=== PATIENT | female | born 1995 | race African-American/Black ===

== ENCOUNTER 2017-12-20 13:47 | Emergency (ER) | payer MEDICAID ==
[2017-12-20 16:05] VITALS: BP 146/86
--- NOTE | 2017-12-20 19:21 | ED ---
Zelalem Wynn Julia, scribed for Naman Powell MD on 12/20/17 at 1510 . Lower Extremity - HPI Summary HPI Summary: This patient is a 22 year old F presenting to [facility] with a chief complaint of right knee pain for the past weeks Patient reports clicking/cracking of her knee with flexion and extension. Symptoms aggravated by jumping. Patient states she is very active. - History of Current Complaint Chief Complaint: EDExtremityLower Stated Complaint: RT KNEE PAIN Time Seen by Provider: 12/20/17 14:34 Hx Obtained From: Patient Hx Last Menstrual Period: March 15 Mechanism Of Injury: Other Onset of Pain: Days Onset/Duration: Still Present Pain Intensity: 0 Timing: Constant Location: Is Discrete @ - right knee Associated Signs And Symptoms: Positive: Knee Pain, Other - clicking Aggravating Factor(s): Standing, Movement Able to Bear Weight: Yes - Allergies/Home Medications Allergies/Adverse Reactions: Allergies Allergy/AdvReac Type Severity Reaction Status Date / Time No Known Allergies Allergy Verified 12/20/17 14:43 Home Medications: Home Medications Quetiapine Fumarate [Quetiapine Fumarate ER] 50 mg PO DAILY 12/20/17 [History Confirmed 12/20/17] PMH/Surg Hx/FS Hx/Imm Hx Cardiovascular History: Denies: Hx Congestive Heart Failure Respiratory History: Reports: Hx Asthma - Surgical History Surgery Procedure, Year, and Place: HERNIA REPAIR - Immunization History Date of Tetanus Vaccine: Unk Date of Influenza Vaccine: None Infectious Disease History: No Infectious Disease History: Denies: Traveled Outside the [place] in Last 30 Days - Family History Known Family History: Negative: Cardiac Disease - Social History Alcohol Use: Occasionally Substance Use Type: Reports: None Smoking Status (MU): Light Every Day Tobacco Smoker - casually Have You Smoked in the Last Year: No Review of Systems Negative: Fever Positive: Myalgia - knee pain. Negative: Edema All Other Systems Reviewed And Are Negative: Yes Physical Exam - Summary Physical Exam Summary: Appearance: Well appearing, no pain distress Skin: warm, dry, reflects adequate perfusion Head/face: normal Eyes: EOMI, RONNELL ENT: normal Neck: supple, non-tender Respiratory: CTA, breath sounds present Cardiovascular: RRR, pulses symmetrical Abdomen: non-tender, soft Bowel Sounds: present Musculoskeletal: strength/ROM intact, minimal discomfort to the lateral aspects of the patella Neuro: normal, sensory motor intact, A&Ox3 Triage Information Reviewed: Yes Vital Signs On Initial Exam: Initial Vitals Temp Pulse Resp BP Pulse Ox 97.5 F 68 16 139/69 97 12/20/17 13:55 12/20/17 13:55 12/20/17 13:55 12/20/17 13:55 12/20/17 13:55 Vital Signs Reviewed: Yes Diagnostics - Vital Signs Vital Signs Temp Pulse Resp BP Pulse Ox 12/20/17 13:55 97.5 F 68 16 139/69 97 - Laboratory Lab Statement: Any lab studies that have been ordered have been reviewed, and results considered in the medical decision making process. - Additional Comments Diagnostic Additional Comments: A XR of the right knee was cancelled. Lower Extremity Course/Dx - Course Course Of Treatment: Pt with activity based discomfort in area of patella. No effusion or instability of joint. Nl gait and little pain now. Will recommend PFS brace. Xray not done as radiology requiring preg test (no urine test done here). Pt agrees at deferred xray. - Diagnoses Differential Diagnosis/HQI/PQRI: Positive: Contusion, Sprain, Strain, Tendonitis Provider Diagnoses: Patellofemoral syndrome of right knee Discharge - Sign-Out/Discharge Documenting (check all that apply): Discharge - Discharge Plan Condition: Good Disposition: HOME Patient Education Materials: Patellofemoral Pain Syndrome (ED) Forms: *Work Release Referrals: [facility] [place] [facility] REFERR[facility] [Outside] Additional Instructions: Rest, ice, elevation at rest. Obtain and use the "Kneed-It" brace I described. Ibuprofen as needed. The documentation as recorded by the Zelalem diaz Julia accurately reflects the service I personally performed and the decisions made by me, Naman Powell MD.
== END 2017-12-20 16:04 | disposition home or self-care (01) ==
LOC: ED 13:47
DX: M22.2X1 Patellofemoral disorders, right knee (principal); M25.561 Pain in right knee
CPT/HCPCS: 99282

== ENCOUNTER 2018-02-12 10:30 | Emergency (ER) | payer MEDICAID ==
[2018-02-12 14:35] VITALS: BP 123/88
--- NOTE | 2018-02-12 16:55 | ED ---
Skin Complaint - HPI Summary HPI Summary: Patient is a 22-year-old female who presents emergency department for evaluation of the lesion to her mouth that she has had for several months. Patient states she was tested for STDs recently at [facility] and did not hear back results. She was concerned because she has noticed a lesion in her mouth that is not changed for several months. It is not painful. Symptoms are mild in severity. She denies any associated symptoms. No current modifying factors. Patient has a history of schizophrenia and states she does not take her medication because she does not like the way it makes her feel. She otherwise denies past medical history. - History of Current Complaint Chief Complaint: EDGeneral Time Seen by Provider: 02/12/18 13:33 Stated Complaint: GEN. ILLNESS Hx Obtained From: Patient Hx Last Menstrual Period: March 15 Pain Intensity: 1 Pain Scale Used: 0-10 Numeric - Allergy/Home Medications Allergies/Adverse Reactions: Allergies Allergy/AdvReac Type Severity Reaction Status Date / Time No Known Allergies Allergy Verified 02/12/18 10:43 PMH/Surg Hx/FS Hx/Imm Hx Previously Healthy: Yes Cardiovascular History: Denies: Hx Congestive Heart Failure Respiratory History: Reports: Hx Asthma - Surgical History Surgery Procedure, Year, and Place: HERNIA REPAIR - Immunization History Date of Tetanus Vaccine: Unk Date of Influenza Vaccine: None Infectious Disease History: No Infectious Disease History: Denies: Traveled Outside the [place] in Last 30 Days - Family History Known Family History: Positive: None Negative: Cardiac Disease Family History: no known cardiovascular issues in lineage - Social History Alcohol Use: Occasionally Substance Use Type: Reports: None Smoking Status (MU): Light Every Day Tobacco Smoker Have You Smoked in the Last Year: No Review of Systems Positive: Other - Mouth lesion All Other Systems Reviewed And Are Negative: Yes Physical Exam Triage Information Reviewed: Yes Vital Signs On Initial Exam: Initial Vitals Temp Pulse Resp BP Pulse Ox 98.2 F 75 17 116/73 99 02/12/18 10:41 02/12/18 10:41 02/12/18 10:41 02/12/18 10:41 02/12/18 10:41 Vital Signs Reviewed: Yes Appearance: Positive: Well-Appearing - Pt. sitting on bed in NAD. Skin: Positive: Warm, Dry Head/Face: Positive: Normal Head/Face Inspection Eyes: Positive: Normal ENT: Positive: Other - I do not appreciate any lesions to the inner mucosal on lip where patient is concerned. There is no ulceration, edema, erythema, or wounds. Neck: Positive: Supple Neurological: Positive: Normal, CN Intact II-III Psychiatric: Positive: Affect/Mood Appropriate Diagnostics - Vital Signs Vital Signs Temp Pulse Resp BP Pulse Ox 02/12/18 14:34 0 F 67 16 123/88 97 02/12/18 10:41 98.2 F 75 17 116/73 99 - Laboratory Lab Statement: Any lab studies that have been ordered have been reviewed, and results considered in the medical decision making process. Course/Dx - Course Course Of Treatment: Patient presenting to the ER for elevation of an oral lesion. She is concerned she may have an STD. On her exam I do not appreciate any abnormalities or lesions in her mouth. Patient is relieved. Advised close follow-up with PCP. Discharged home stable. - Differential Diagnoses - Skin Complaint Differential Diagnoses: Abscess, Cellulitis, Contact Dermatitis, Eczema - Diagnoses Provider Diagnoses: Well adult exam Discharge - Sign-Out/Discharge Documenting (check all that apply): Discharge/Admit/Transfer - Discharge Plan Condition: Good Disposition: HOME Patient Education Materials: Canker Sores (ED) Referrals: [facility] [Outside] No Primary Care Phys,NOPCP [Primary Care Provider] - Additional Instructions: Call the physician referral line to establish a PCP Return to ER if symptoms change or worsen - Billing Disposition and Condition Condition: GOOD Disposition: Home
== END 2018-02-12 14:34 | disposition home or self-care (01) ==
LOC: ED 10:30
DX: Z71.1 Person with feared health complaint in whom no diagnosis is made (principal); F17.200 Nicotine dependence, unspecified, uncomplicated
CPT/HCPCS: 99282

== ENCOUNTER 2018-03-12 18:47 | Inpatient (IN) | payer MEDICAID ==
[2018-03-12] MEDS ORDERED: LORazepam INJ* 2 MG/ML 1 ML VIAL ONE (18:50)
[2018-03-12] MEDS ORDERED: diPHENhydraMINE IV* 50 MG/ML 1 ml VIAL (BENADRYL) ONE (18:50)
[2018-03-12] MEDS ORDERED: Haloperidol INJ IV/IM* 5 MG/ML AMP ONE (18:50)
[2018-03-12] MEDS ORDERED: Ibuprofen TAB* 800 MG PO ONE (19:28)
[2018-03-12 22:19] LABS: ABS Basophils 0 10^3/ul (0-0.2); ABS Eosinophils 0.1 10^3/ul (0-0.6); ABS Lymphocytes 2.7 10^3/ul (1.0-4.8); ABS Monocytes 0.5 10^3/ul (0-0.8); ABS Neutrophils 2.7 10^3/ul (1.5-7.7); ABS Nucleated RBC 0 10^3/ul; Hematocrit 39 % (35-47); Hemoglobin 13.1 g/dl (12.0-16.0); Lymphocyte % 44.3 % (25-47); Mean Corpuscular HGB Conc 34 g/dl (31-36); Mean Corpuscular Hemoglobin 30 pg (27-31); Mean Corpuscular Volume 90 fL (80-97); Mean Platelet Volume 8.4 um3 (7.4-10.4); Nucleated Red Blood Cells % 0.3; Platelet Count 216 10^3/ul (150-450); Red Blood Count 4.31 10^6/ul (4.00-5.40); Red Cell Distribution Width 14 % (10.5-15)
--- NOTE | 2018-03-13 07:34 | RAD ---
HISTORY: hallucination COMPARISONS: November 27, 2013 TECHNIQUE: Multiple contiguous axial CT scans were obtained of the head without intravenous contrast. FINDINGS: HEMORRHAGE/INFARCT: There is no hemorrhage or acute infarct. MASSES/SHIFT: There is no mass or shift. EXTRA-AXIAL SPACES: There are no extra-axial fluid collections. SULCI AND VENTRICLES: The sulci and ventricles are normal in size and position for the patient's stated age. CEREBRUM: There are no focal parenchymal abnormalities. BRAINSTEM: There are no focal parenchymal abnormalities. CEREBELLUM: There are no focal parenchymal abnormalities. VESSELS: The vessels are grossly normal. PARANASAL SINUSES: The paranasal sinuses are clear. ORBITS: The orbits are unremarkable. BONES AND SOFT TISSUE: No bone or soft tissue abnormalities are noted. OTHER: None IMPRESSION: NO ACUTE INTRACRANIAL PATHOLOGY.
--- NOTE | 2018-03-13 08:02 | PN ---
ED Flex Patient Progress Note Date of Service: 03/12/18 Subjective: This is a 23 year-old F who is pending admission to [facility] / transfer to another psychiatric facility / discharge to home / or being observed secondary to SI and agitation. Pt. examined in ER room 17 around 0730. She is sleeping comfortably. Objective: Vitals: Most recent vital signs documented below. Laboratory: Current laboratory results documented below. Assessment: Pending MHE. Plan: Pending psychiatric or medical consultation to observe / transfer / admit / discharge will follow up daily . Vital Signs Temp Pulse Resp BP Pulse Ox 98.4 F 66 12 117/72 100 03/12/18 18:49 03/13/18 06:00 03/12/18 18:49 03/12/18 22:52 03/13/18 06:00 Lab Results - Entire Visit 03/12/18 03/12/18 22:12 22:12 WBC 6.0 RBC 4.31 Hgb 13.1 Hct 39 MCV 90 MCH 30 MCHC 34 RDW 14 Plt Count 216 MPV 8.4 Neut % (Auto) 44.4 Lymph % (Auto) 44.3 [place] % (Auto) 8.9 H Eos % (Auto) 2.0 Baso % (Auto) 0.4 Absolute Neuts (auto) 2.7 Absolute Lymphs (auto) 2.7 Absolute Monos (auto) 0.5 Absolute Eos (auto) 0.1 Absolute Basos (auto) 0 Absolute Nucleated RBC 0 Nucleated RBC % 0.3 Sodium 141 Potassium 3.4 L Chloride 106 Carbon Dioxide 24 Anion Gap 11 BUN 17 Creatinine 1.00 H Est GFR ( Amer) 84.7 Est GFR (Non-Af Amer) 70.0 BUN/Creatinine Ratio 17.0 Glucose 105 H Calcium 9.2 Total Bilirubin 0.60 AST 32 ALT 18 Alkaline Phosphatase 72 Total Protein 6.5 Albumin 4.1 Globulin 2.4 Albumin/Globulin Ratio 1.7 TSH 1.39 Beta HCG, Quant < 0.60 Salicylates < 2.50 Acetaminophen < 15 Serum Alcohol < 10
[2018-03-13] MEDS ORDERED: Al Hydrox/Mg Hydrox/Simet LIQ* 30 ML UDC PO PRN (13:06)
[2018-03-13] MEDS ORDERED: Acetaminophen TAB* 325 MG PO PRN (13:06)
[2018-03-13] MEDS ORDERED: LORazepam TAB(*) 1 MG PO PRN (13:08)
[2018-03-13] MEDS ORDERED: Haloperidol TAB* 5 MG PO PRN (13:08)
--- NOTE | 2018-03-13 14:00 | ED ---
Shlomo Wynn Angela, scribed for Gaston Hernandez MD on 03/13/18 at 1224 . Progress - Progress Note Progress Note: This pt was signed out by Dr. Grady, pending disposition, awaiting MHE. Pt had a mental health evaluation and her case was reviewed by Dr. Amaya, psychiatrist. Dr. Amaya recommends admission to [facility] [place] psychiatry. Pt will be admitted with a diagnosis of unspecified psychotic disorder. Course/Dx - Diagnoses Provider Diagnoses: Psychotic disorder Discharge - Sign-Out/Discharge Documenting (check all that apply): Discharge/Admit/Transfer - Admit, Receiving Sign-Out Receiving patient FROM: Annmarie Grady - Discharge Plan Condition: Stable Disposition: PSYCHIATRIC FACILITY-[facility] [place] - Billing Disposition and Condition Condition: STABLE Disposition: Psychiatric Facility [facility] [place] The documentation as recorded by the Shlomo diaz Angela accurately reflects the service I personally performed and the decisions made by David ellis Richard L, MD.
--- NOTE | 2018-03-14 03:44 | ED ---
Drake Wynn Tariq, scribed for Annmarie Grady MD on 03/12/18 at 1931 . Upper Extremity Pain - HPI Summary HPI Summary: A 23 y/o female presents to ED c/o right shoulder pain and diffuse body pain. Additionally, as per triage, she states SI without a plan. According to the patient, her shoulder is very painful, 7/10 in severity, because she has dislocated it several times (3 or more times). She denies any injury, but her shoulder keeps dislocating, "it keeps dislocating itself, it hurts". She noted that she currently does not have SI, but answered the nurse's question truthfully that she has had SI in the past. It was noted that the patient has not seen any physician for SI in the past. Patient states she has a psychiatric disease and did take Seraquil for it, however, is currently not on it because it does not work for her, "it does not do what it is suppose to do". She is currently on no other medications. Patient stated that she does not live with family as she lives on the streets. - History of Current Complaint Chief Complaint: EDMentalHealth Stated Complaint: PAIN IN RT SHOULDER Time Seen by Provider: 03/12/18 19:10 Hx Obtained From: Patient Hx Last Menstrual Period: March 15 Mechanism Of Injury: Unknown Onset/Duration: Still Present - Right shoulder pain Timing: Constant Severity Initially: Severe - 7/10 Severity Currently: Severe - 7/10 Pain Location: Shoulder - Right Aggravating Factor(s): Nothing Alleviating Factor(s): Nothing - Allergies/Home Medications Allergies/Adverse Reactions: Allergies Allergy/AdvReac Type Severity Reaction Status Date / Time No Known Allergies Allergy Verified 03/12/18 18:49 Home Medications: Home Medications NK [No Home Medications Reported] 03/12/18 [History Confirmed 03/12/18] PMH/Surg Hx/FS Hx/Imm Hx Cardiovascular History: Denies: Hx Congestive Heart Failure Respiratory History: Reports: Hx Asthma - Surgical History Surgery Procedure, Year, and Place: HERNIA REPAIR - Immunization History Date of Tetanus Vaccine: Unk Date of Influenza Vaccine: None Infectious Disease History: No Infectious Disease History: Denies: Traveled Outside the [place] in Last 30 Days - Family History Known Family History: Negative: Cardiac Disease Family History: no known cardiovascular issues in lineage - Social History Alcohol Use: Occasionally Substance Use Type: Reports: None Smoking Status (MU): Light Every Day Tobacco Smoker Have You Smoked in the Last Year: No Review of Systems Negative: Fever Positive: Other - POSITIVE: Right shoulder pain All Other Systems Reviewed And Are Negative: Yes Physical Exam - Summary Physical Exam Summary: VITAL SIGNS: Reviewed. GENERAL: Patient is a well-developed and nourished FEMALE who is lying comfortable in the stretcher. Patient is not in any acute respiratory distress. Patient is homeless. Patient is wearing sunglasses and seems like she is having a delayed effect in answering questions. HEAD AND FACE: No signs of trauma. No ecchymosis, hematomas or skull depressions. No sinus tenderness. EYES: PERRLA, EOMI x 2, No injected conjunctiva, no nystagmus. EARS: Hearing grossly intact. Ear canals and tympanic membranes are within normal limits. MOUTH: Oropharynx within normal limits. NECK: Supple, trachea is midline, no adenopathy, no JVD, no carotid bruit, no c- spine tenderness, neck with full ROM. CHEST: Symmetric, no tenderness at palpation LUNGS: Clear to auscultation bilaterally. No wheezing or crackles. CVS: Regular rate and rhythm, S1 and S2 present, no murmurs or gallops appreciated. ABDOMEN: Soft, non-tender. No signs of distention. No rebound no guarding, and no masses palpated. Bowel sounds are normal. EXTREMITIES: FROM in all major joints, no edema, no cyanosis or clubbing. Shoulder exam is normal. NEURO: Alert and oriented x 3. No acute neurological deficits. Speech is normal and follows commands. SKIN: Dry and warm GCS: 15 Triage Information Reviewed: Yes Vital Signs On Initial Exam: Initial Vitals Temp Pulse Resp BP Pulse Ox 98.4 F 69 12 111/76 100 03/12/18 18:49 03/12/18 18:49 03/12/18 18:49 03/12/18 18:49 03/12/18 18:49 Vital Signs Reviewed: Yes Diagnostics - Vital Signs Vital Signs Temp Pulse Resp BP Pulse Ox 03/12/18 18:49 98.4 F 69 12 111/76 100 - Laboratory Lab Results: Lab Results 03/12/18 03/12/18 Range/Units 22:12 22:12 WBC 6.0 (3.5-10.8) 10^3/ul RBC 4.31 (4.00-5.40) 10^6/ul Hgb 13.1 (12.0-16.0) g/dl Hct 39 (35-47) % MCV 90 (80-97) fL MCH 30 (27-31) pg MCHC 34 (31-36) g/dl RDW 14 (10.5-15) % Plt Count 216 (150-450) 10^3/ul MPV 8.4 (7.4-10.4) um3 Neut % (Auto) 44.4 (38-83) % Lymph % (Auto) 44.3 (25-47) % Pepin % (Auto) 8.9 H (0-7) % Eos % (Auto) 2.0 (0-6) % Baso % (Auto) 0.4 (0-2) % Absolute Neuts (auto) 2.7 (1.5-7.7) 10^3/ul Absolute Lymphs (auto) 2.7 (1.0-4.8) 10^3/ul Absolute Monos (auto) 0.5 (0-0.8) 10^3/ul Absolute Eos (auto) 0.1 (0-0.6) 10^3/ul Absolute Basos (auto) 0 (0-0.2) 10^3/ul Absolute Nucleated RBC 0 10^3/ul Nucleated RBC % 0.3 Sodium 141 (135-145) mmol/L Potassium 3.4 L (3.5-5.0) mmol/L Chloride 106 (101-111) mmol/L Carbon Dioxide 24 (22-32) mmol/L Anion Gap 11 (2-11) mmol/L BUN 17 (6-24) mg/dL Creatinine 1.00 H (0.51-0.95) mg/dL Est GFR ( Amer) 84.7 (>60) Est GFR (Non-Af Amer) 70.0 (>60) BUN/Creatinine Ratio 17.0 (8-20) Glucose 105 H (70-100) mg/dL Calcium 9.2 (8.6-10.3) mg/dL Total Bilirubin 0.60 (0.2-1.0) mg/dL AST 32 (13-39) U/L ALT 18 (7-52) U/L Alkaline Phosphatase 72 (34-104) U/L Total Protein 6.5 (6.4-8.9) g/dL Albumin 4.1 (3.2-5.2) g/dL Globulin 2.4 (2-4) g/dL Albumin/Globulin Ratio 1.7 (1-3) Triglycerides 48 mg/dL Cholesterol 149 mg/dL LDL Cholesterol 96 mg/dL HDL Cholesterol 43.9 mg/dL TSH 1.39 (0.34-5.60) mcIU/mL Beta HCG, Quant < 0.60 mIU/mL Salicylates < 2.50 (<30) mg/dL Acetaminophen < 15 mcg/mL Serum Alcohol < 10 (<10) mg/dL Result Diagrams: 03/12/18 22:12 03/12/18 22:12 Lab Statement: Any lab studies that have been ordered have been reviewed, and results considered in the medical decision making process. - CT BRAIN CT CT Interpretation Completed By: Radiologist - NO DEFINITIVE EVIDENCE OF ACUTE INTRACRANIAL HEMORRHAGE, INTRACRANIAL MASS EFFECT, HYDROCEPHALUS, OR DEPRESSED CALVARIAL FRACTURE IS APPRECIATED. IF SYMPTOMS OR CONCERN PERSISTS, CORRELATION WITH FOLLOW UP CT OR MRI IS ADVISED, AT YOUR CLINICAL DISCRETION. Re-Evaluation - Re-Evaluation First Eval Re-Evaluation Time: 22:49 Comment: As per Dr. Grady, patient was evaluated by mental health. Patient was found to be uncooperative, angry and agitated. Patient refused blood work and is uncooperative at this time. Patient has been seen and has talked with Dr. Grady, mental health and the nursing staff for blood work and work up. Patient persisted with being uncooperative. Patient had to be sedated because she was fighting with staff. Course/Dx - Diagnoses Provider Diagnoses: Psychotic disorder Discharge - Sign-Out/Discharge Documenting (check all that apply): Discharge/Admit/Transfer Signing out patient TO: Gaston Hernandez Receiving patient FROM: Annmarie Grady - Discharge Plan Condition: Stable Disposition: [place] [place] [place] Billing Disposition and Condition Condition: STABLE Disposition: Psychiatric Facility [facility] [place] The documentation as recorded by the Drake diaz Tariq accurately reflects the service I personally performed and the decisions made by , Annmarie Grady MD.
[2018-03-14] MEDS: Paliperidone ER TAB* 6 MG TAB.ER PO SCH (12:53)
[2018-03-14] MEDS ORDERED: Mouth Piece, Nicotine* 1 EACH CARTRIDGE INH PRN (13:11)
[2018-03-14] MEDS ORDERED: Nicotine GUM* 2 MG PO PRN (13:11)
[2018-03-14] MEDS ORDERED: Nicotine Inhaler* 10 MG AMP INH PRN (13:11)
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
[2018-03-14] MEDS: Nicotine Patch Removal NOTE FOLLOW UP SCH (20:13)
[2018-03-15] MEDS: Paliperidone ER TAB* 6 MG TAB.ER PO SCH (08:38)
[2018-03-15] MEDS: Nicotine PATCH 14 MG/24 HR* PATCH TRANSDERM SCH (08:38)
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
[2018-03-15] MEDS: Nicotine Patch Removal NOTE FOLLOW UP SCH (19:12)
[2018-03-16] MEDS: Paliperidone ER TAB* 6 MG TAB.ER PO SCH (08:47)
[2018-03-16] MEDS: Nicotine PATCH 14 MG/24 HR* PATCH TRANSDERM SCH (08:47)
--- NOTE | 2018-03-16 13:19 | PN ---
[facility]: Group Therapy Note - Service Type Service Type: [id number] Group Psychotherapy - Cognitive Behavioral Group Therapy ( CBT):Patient was attentive and participatory in CBT programming this morning, and remained in good behavioral control. Patient expressed positive insights regarding relevant treatment interventions and goals. Jerri exhibted some odd behavior, such as standing on a chair, but accepted redirection well.
--- NOTE | 2018-03-16 14:37 | PN ---
Subjective - Subjective Date of Service: 03/16/18 Service Type: 76906 Hosp care 35 min high complexity Subjective: Patient is primarily seclusive to her room. She is sometimes present in milieu and groups with minimal interactions and impulsive, bizarre behavior. For example, she stood on a chair during CBT group. She is noted to laugh and smile to herself and has positive latencies during interactions with others. Patient met with providers from [facility] to discuss program and potential admission. They exchanged information and patient will be referred to [facility] from hospital for direct transition of care. From there, [facility] will coordinate with [facility]. Patient agreeable to plan. Objective - Appearance Appearance: Well Developed/Nourished Dysmorphic Features: No Hygiene: Normal Grooming: Fairly Well Kept - Behavior Psychomotor Activities: Normal Exhibits Abnormal Movement: No - Attitude and Relatedness Attitude and Relatedness: Psychotically Related Eye Contact: Fair - Speech Quality: Unpressured Latencies: Short Quantity: Terse - Mood Patient's Decription of Mood: "tired" - Affect Observed Affect: Expansive Affect Consistent with: Euphoria - Thought Process Patient's Thought Process: Tangential, Filght of Ideas Thought Content: Yes Paranoid Ideation, No Passive Wish, No Suicidal Planning, No Homicidal Ideation - Sensorium Experiencing Hallucinations: Yes Type of Hallucinations: Visual: Yes, Auditory: Yes, Command: No - Level of Consciousness Level of Consciousness: Alert Orientation: Yes Intact, Yes Orientated to Time, Yes Orientated to Place, Yes Orientated to Person - Impulse Control Impulse Control: Tenuous - Insight and Judgement Insight and Judgement: Poor - Group Participation Particating in Group Activities: No - Medication Management Medication Management Adherence: Partial Assessment - Assessment Merits Inpatient Hospitalization: For Immediate Safety, For Stabilization, For Discharge Planning Inpatient DSM-V Dx: F25.0 Clinical Impression: 23yo black female with hx of schizoaffective d/o who presented to ED for shoulder pain. She was noted to be psychotic and in need for psychiatric evaluation. She continues to present as paranoid and guarded. Patient has poor insight and is attending to internal stimuli. Patient rescinded 72-hour notice in order to participate in staff pass. She is refusing medications but agrees to meet with [facility] for aftercare. Plan - Plan Treatment Plan: Name: MAYRA STILL Birthdate: 1995 [id number] continue acute intensive psychiatric treatment. patient rescinded 72-hour notice. patient is refusing medication patient to f/u with [facility] Continued Medication Management: Consider Medication Medications: Current Medications Acetaminophen (Tylenol Tab*) 650 mg PO Q4H PRN PRN Reason: for pain; or Temp >101 F Al Hydrox/Mg Hydrox/Simethicone (Maalox Plus*) 30 ml PO Q4H PRN PRN Reason: INDIGESTION Device (Nicotine Mouth Piece*) 1 each INH .USE WITH NICOTROL PRN PRN Reason: CRAVING Haloperidol (Haldol Tab*) 5 mg PO Q6H PRN PRN Reason: AGITATION Lorazepam (Ativan Tab(*)) 1 mg PO Q6H PRN PRN Reason: ANXIETY Nicotine (Nicotine Inhaler*) 10 mg INH Q2H PRN PRN Reason: CRAVING Nicotine (Nicotine Patch 14 Mg/24 Hr*) 1 patch TRANSDERM DAILY [facility] Last Admin: 03/16/18 08:47 Dose: Not Given Nicotine Polacrilex (Nicotine Gum*) 2 mg PO Q2H PRN PRN Reason: CRAVING Paliperidone (Invega Er Tab*) 6 mg PO DAILY [facility] Last Admin: 03/16/18 08:47 Dose: Not Given Pharmacy Profile Note (Nicotine Patch Removal Note*) 1 note FOLLOW UP [facility]99 [facility] Last Admin: 03/15/18 19:12 Dose: Not Given - Discharge Plan Discharge Plan: Outpatient Follow Up Outpatient Program: [facility]
[2018-03-16] MEDS: Nicotine Patch Removal NOTE FOLLOW UP SCH (21:13)
[2018-03-17 07:57] VITALS: BP 99/75
[2018-03-17] MEDS: Nicotine PATCH 14 MG/24 HR* PATCH TRANSDERM SCH (09:22)
[2018-03-17] MEDS: Paliperidone ER TAB* 6 MG TAB.ER PO SCH (09:22)
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
== END 2018-03-17 11:10 | disposition home or self-care (01) | DRG 750 ==
LOC: ED 18:47 → BSU 03-13 13:10
PROVIDERS: ADMIT Psychiatry & Neurology Psychiatry; ATTEND Psychiatry & Neurology Psychiatry
PROC: GZHZZZZ Group Psychotherapy (ICD-10-PCS; principal; 2018-03-16)
DX: F25.0 Schizoaffective disorder, bipolar type (principal); R45.851 Suicidal ideations; Z72.89 Other problems related to lifestyle; R45.1 Restlessness and agitation; J45.909 Unspecified asthma, uncomplicated; F17.210 Nicotine dependence, cigarettes, uncomplicated; M25.511 Pain in right shoulder; Z62.810 Personal history of physical and sexual abuse in childhood
CPT/HCPCS: 36415; 70450; 80053; 80061; 80320; 80329; 83036; 84443; 84702; 85025; 85660; 86618; 90853; 99222; 99233; 99238; 99284; A9270-GY; G0480; J1200; J1630; J2060

== ENCOUNTER 2018-03-18 12:29 | Inpatient (IN) | payer MEDICAID ==
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
[2018-03-18 13:40] LABS: ABS Basophils 0 10^3/ul (0-0.2); ABS Eosinophils 0.1 10^3/ul (0-0.6); ABS Lymphocytes 2.3 10^3/ul (1.0-4.8); ABS Monocytes 0.7 10^3/ul (0-0.8); ABS Nucleated RBC 0 10^3/ul; Eosinophil % 1.1 % (0-6); Hematocrit 37 % (35-47); Hemoglobin 12.4 g/dl (12.0-16.0); Lymphocyte % 32.8 % (25-47); Mean Corpuscular HGB Conc 34 g/dl (31-36); Mean Corpuscular Hemoglobin 30 pg (27-31); Mean Corpuscular Volume 90 fL (80-97); Mean Platelet Volume 8.5 um3 (7.4-10.4); Nucleated Red Blood Cells % 0.1; Platelet Count 209 10^3/ul (150-450); Red Blood Count 4.08 10^6/ul (4.00-5.40); Red Cell Distribution Width 14 % (10.5-15); White Blood Count 7.2 10^3/ul (3.5-10.8)
[2018-03-18 13:56] LABS: EGFR Non-African American 94.6 (>60)
[2018-03-18 14:54] LABS: Urine Appearance Clear; Urine Blood Negative (Negative); Urine Color Yellow; Urine Ketones Negative (Negative); Urine Protein Negative (Negative); Urine Specific Gravity 1.028 (1.010-1.030); Urine Urobilinogen Negative (Negative)
[2018-03-18] MEDS ORDERED: Acetaminophen TAB* 325 MG PO PRN (18:25)
[2018-03-18] MEDS ORDERED: Al Hydrox/Mg Hydrox/Simet LIQ* 30 ML UDC PO PRN (18:25)
[2018-03-19] MEDS: Vitamin THERAPEUTIC TAB PO SCH (13:18)
--- NOTE | 2018-03-19 19:49 | HP ---
HISTORY AND PHYSICAL: DATE OF ADMISSION: 03/18/18 This is an addendum to the recent history and physical and discharge summary dictated on this patient. IDENTIFYING DATA: The patient is a 23-year-old, single, homeless, unemployed, and mentally disabled female who referred herself back to this hospital, the day after a previous discharge, on Tuesday03/18/18. She was admitted on emergency status for her safety, given that she is too disorganized in her thinking and behavior to function safely in the community. CHIEF COMPLAINT: "I went to [facility], they said they could not help me, that I would just be out tonight, you guys said I could come back, right?" HISTORY OF PRESENT ILLNESS: The patient was previously admitted to the adult psychiatric unit from 03/13/18 to 03/17/18 for treatment of psychosis. She briefly agreed to trial of a low dose of quetiapine. She refused to continue taking the medication after the first dose, complaining of sedation. She submitted a 72-hour notice that she subsequently rescinded in order to be able to go on staff passes. The patient worked cooperatively with her treatment team , appeared improved enough to be discharged with outpatient psychiatric followup care. The patient left on yesterday 03/17/18, on no medication, as she had refused, but with followup appointment at [facility] on 03/22/18 at 10:30 p.m. and with instructions to continue working with [facility] for supportive services. She was also instructed to go directly to [facility] after discharge to meet with senior technologist Ruth Ann Veronica to explore housing options. Today, she relates that she did go to [facility] and she was told by Ms. Veronica that they ([facility]) could not help her and that she just had to be out in the streets. She became angry and frustrated and left. She walked aimlessly around town. In the evening, she had "a few shots of alcohol, but she did not feel intoxicated." She slept outside, (refused to elaborate as to where outside exactly). She decided to return to this hospital on Tuesday morning "to get more help." She is still unwilling to consider medication, but she reports being open to participating in programming to learn appropriate coping skills. PAST MEDICAL HISTORY: Remarkable for bronchial asthma and for irregular menstrual periods. The patient is requesting test as she is late for her period. PAST SURGICAL HISTORY: Remarkable for hernia repair. PHYSICAL EXAMINATION ADMISSION VITAL SIGNS: Blood pressure is 117/61, pulse is 80, respirations 16, temperature 98. Physical examination is waived as the patient was discharged and readmitted in less than 24 hours. MENTAL STATUS EXAMINATION: Finds an averagely built, 23-year-old, female with her hair locks wrapped like a turban. She looks her stated age. She is adequately groomed, dressed in hospital scrubs. She presents as psychotically-related. She exhibits normal psychomotor activity. No abnormal movements are observed. Short latencies in speech that is otherwise of normal rate, rhythm, and volume. Her affect is invariable. Mood is euthymic. Thought process is disorganized. She clearly appears to respond to internal stimuli. She admits to hearing several voices, comments that one of the voices is her boyfriend's. She expresses grandiose, paranoid and persecutory delusions, "a lot of people do not want me alive because of who I am and what I am about to find out." Her insight and judgment are grossly impaired. Impulse control is tenuous in this setting. She is alert. She is oriented to time, place, person. Attention, memory, and concentration are all poor. Fund of knowledge is adequate. Intelligence is estimated to be in normal average range. LABORATORY DATA: On admission, her CBC was within normal limits. Complete metabolic panel shows BUN/creatinine ratio of 24.7. Nonfasting glucose 103. Total protein 5.9. The patient's beta hCG was less than 0.6. Urinalysis within normal limits. Urine toxicology screen was negative for salicylates, acetaminophen, or serum alcohol. SUMMARY: Readmission at close interval for this 23-year-old female with diagnosis of schizoaffective disorder, who returned to the emergency room less than 24 hours after previous discharge with complaints of homelessness, and feeling unsafe. On mental health interview, she remained bizarre and exhibited signs and symptoms of psychosis. Medical history is noncontributory. The patient admitted that she had a few shots of alcohol between the time she was discharged and the time she returned here. Her blood alcohol level was less than 10. The patient's family history of psychiatric illnesses or of completed suicide is unknown at this time. The patient described stressors of strained relationship with relatives; housing, occupational and social support deficits. DIAGNOSTIC IMPRESSIONS: 1. Schizoaffective disorder, unspecified type by history. 2. Alcohol abuse, moderate. TREATMENT PLAN: Admit to mental health unit, 15-minute checks, full code status. Legal status is emergency. Initiate comprehensive milieu, individual, and group psychotherapeutic support. Medication management will involve psychoeducation of the patient about the need to consider a trial of antipsychotic medication to effectively control her symptoms. Discharge planning will involve coordination of her aftercare with [facility] and with [facility]. [id number]/CPS #: [id number] ANSHUL
[2018-03-20] MEDS: Vitamin THERAPEUTIC TAB PO SCH (09:01)
--- NOTE | 2018-03-20 15:27 | PN ---
Subjective - Subjective Date of Service: 03/20/18 Service Type: 90994 Hosp care 15 min low complexity Subjective: Patient has been seclusive to room except for meals. She vigorously cleans her room and bathroom during free times. During various conversations with myself and other staff, she is circumstantial and irritable in regards to being rejected by DSS. Auto Body Mechanic attempts to discuss patient's symptomology and she diverts conversation back to DSS topic. She often laughs to herself and identifies that she is hearing auditory hallucinations. Objective - Appearance Appearance: Well Developed/Nourished Dysmorphic Features: No Hygiene: Normal Grooming: Disheveled - Behavior Psychomotor Activities: Normal Exhibits Abnormal Movement: No - Attitude and Relatedness Attitude and Relatedness: Irritable Eye Contact: Fair - Speech Quality: Pressured Latencies: Short Quantity: Terse - Mood Patient's Decription of Mood: "Upset" - Affect Observed Affect: Expansive Affect Consistent with: Euphoria - Thought Process Patient's Thought Process: Circumstantial Thought Content: Yes Paranoid Ideation, No Passive Wish, No Suicidal Planning, No Homicidal Ideation - Sensorium Type of Hallucinations: Visual: No, Auditory: Yes, Command: No - Level of Consciousness Level of Consciousness: Alert Orientation: Yes Intact, Yes Orientated to Time, Yes Orientated to Place, Yes Orientated to Person - Impulse Control Impulse Control: Tenuous - Insight and Judgement Insight and Judgement: Impaired - Group Participation Particating in Group Activities: No - Medication Management Medication Management Adherence: No Assessment - Assessment Merits Inpatient Hospitalization: For Immediate Safety, For Stabilization Inpatient DSM-V Dx: F25.0 Clinical Impression: 23yo black female with history of schizoaffective d/o, undomiciled who presented to the ED shortly after being discharged less than 24hours prior. She presents as psychotic and is not willing to take medications at this time. She merits hospitalization for immediate safety and stabilization. Plan - Plan Treatment Plan: Name: MAYRA STILL Birthdate: 1995 [id number] continue acute intensive psychiatric treatment. continue to establish rapport and attempt to obtain prior history. Continued Medication Management: Consider Medication Medications: Current Medications Acetaminophen (Tylenol Tab*) 650 mg PO Q4H PRN PRN Reason: PAIN or TEMP > 101 F Al Hydrox/Mg Hydrox/Simethicone (Maalox Plus*) 30 ml PO Q4H PRN PRN Reason: INDIGESTION Multivitamins (Theragran Tab*) 1 tab PO DAILY [facility]ERYL Last Admin: 03/20/18 09:01 Dose: Not Given - Discharge Plan Discharge Plan: Outpatient Follow Up Outpatient Program: [facility]
[2018-03-21] MEDS: Vitamin THERAPEUTIC TAB PO SCH (09:18)
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
[2018-03-22] MEDS: Vitamin THERAPEUTIC TAB PO SCH (10:07)
--- NOTE | 2018-03-22 16:18 | PN ---
Subjective - Subjective Date of Service: 03/22/18 Service Type: [id number] Hosp care 15 min low complexity Subjective: Patient performing yoga in her room upon approach. Patient is guarded and irritable at times. She attends to IS and is able to describe running commentary. Patient states frustration with "people coming into my room" in regards to staff performing safety rounds and room searches. She declines groups, despite multiple staff encouraging her. She states she prefers to talk to one or two people at a time. She continues to deny need for medications. Objective - Appearance Appearance: Well Developed/Nourished Dysmorphic Features: No Hygiene: Normal Grooming: Fairly Well Kept - Behavior Psychomotor Activities: Normal Exhibits Abnormal Movement: No - Attitude and Relatedness Attitude and Relatedness: Irritable Eye Contact: Good - Speech Quality: Unpressured Latencies: Normal Quantity: Terse - Mood Patient's Decription of Mood: "Fine" - Affect Observed Affect: Tense Affect Consistent with: Euthymia - Thought Process Patient's Thought Process: Circumstantial Thought Content: Yes Paranoid Ideation, No Passive Wish, No Suicidal Planning, No Homicidal Ideation - Sensorium Experiencing Hallucinations: Yes Type of Hallucinations: Auditory: Yes, Command: Yes - Level of Consciousness Level of Consciousness: Alert Orientation: Yes Intact, Yes Orientated to Time, Yes Orientated to Place, Yes Orientated to Person - Impulse Control Impulse Control: Tenuous - Insight and Judgement Insight and Judgement: Poor - Group Participation Particating in Group Activities: No - Medication Management Medication Management Adherence: No Assessment - Assessment Merits Inpatient Hospitalization: For Immediate Safety, For Stabilization, For Discharge Planning Inpatient DSM-V Dx: F25.0 Clinical Impression: 23yo black female with history of schizoaffective d/o, undomiciled who presented to the ED shortly after being discharged less than 24hours prior. She presents as psychotic and is not willing to take medications at this time. She merits hospitalization for immediate safety and stabilization. Plan - Plan Treatment Plan: Name: MAYRA STILL Birthdate: 1995 [id number] continue acute intensive psychiatric treatment. continue to establish rapport and attempt to obtain prior history. Continued Medication Management: Consider Medication Medications: Current Medications Acetaminophen (Tylenol Tab*) 650 mg PO Q4H PRN PRN Reason: PAIN or TEMP > 101 F Al Hydrox/Mg Hydrox/Simethicone (Maalox Plus*) 30 ml PO Q4H PRN PRN Reason: INDIGESTION Multivitamins (Theragran Tab*) 1 tab PO DAILY [facility]ERY[facility] Last Admin: 03/22/18 10:07 Dose: Not Given - Discharge Plan Discharge Plan: Outpatient Follow Up Outpatient Program: [facility]
[2018-03-23] MEDS ORDERED: LORazepam TAB(*) 1 MG PO PRN (10:52)
[2018-03-23] MEDS ORDERED: chlorproMAZINE TAB* 100 MG PO PRN (10:52)
[2018-03-23] MEDS ORDERED: Haloperidol TAB* 5 MG PO PRN (10:53)
--- NOTE | 2018-03-23 12:18 | PN ---
Subjective - Subjective Date of Service: 03/23/18 Service Type: 24455 Hosp care 25 min moderate complexity Subjective: Patient is agitated, cursing and demanding to be discharged. She reports reading in the patient handbook that she can be discharged due to not feeling safe here. She is wearing a pillowcase as a headwrap and a sock as a visor over her eyes. She states that she has "someone" to live with but that person does not have a phone number nor will they come to the hospital. She does not divulge any further information and states that it is "none of your fing business." Staff has made many attempts to de-escalate and patient continues to be hostile. She refuses offer of medications. Counter Control Operator informed patient of need for stabilization and safe discharge plan. Objective - Appearance Appearance: Well Developed/Nourished Dysmorphic Features: No Hygiene: Normal Grooming: Disheveled - Behavior Psychomotor Activities: Normal Exhibits Abnormal Movement: No - Attitude and Relatedness Attitude and Relatedness: Hostile Eye Contact: Poor - Speech Quality: Pressured Latencies: Normal Quantity: Terse - Mood Patient's Decription of Mood: "Upset" - Affect Observed Affect: Expansive Affect Consistent with: Euphoria - Thought Process Patient's Thought Process: Tangential, Circumstantial Thought Content: Yes Paranoid Ideation, No Passive Wish, No Suicidal Planning, No Homicidal Ideation - Sensorium Experiencing Hallucinations: Yes Type of Hallucinations: Visual: No, Auditory: Yes, Command: Yes - Level of Consciousness Level of Consciousness: Alert Orientation: Yes Intact, Yes Orientated to Time, Yes Orientated to Place, Yes Orientated to Person - Impulse Control Impulse Control: Impaired - Insight and Judgement Insight and Judgement: Impaired - Group Participation Particating in Group Activities: No - Medication Management Medication Management Adherence: No Assessment - Assessment Merits Inpatient Hospitalization: For Immediate Safety, For Stabilization, To Initiate Treatment, For Discharge Planning, Pending Safe DC Plan Inpatient DSM-V Dx: F25.0 Clinical Impression: 23yo black female with history of schizoaffective d/o, undomiciled who presented to the ED shortly after being discharged less than 24hours prior. She presents as psychotic and is not willing to take medications at this time. She merits hospitalization for immediate safety and stabilization. Plan - Plan Treatment Plan: Name: MAYRA STILL Birthdate: 1995 [id number] continue acute intensive psychiatric treatment. add invega 6mg po daily; utilize thorazine, haloperidol and lorazepam as needed for agitation. will consider treatment over objection if no improvement. Continued Medication Management: Start Medication Medications: Current Medications Acetaminophen (Tylenol Tab*) 650 mg PO Q4H PRN PRN Reason: PAIN or TEMP > 101 F Al Hydrox/Mg Hydrox/Simethicone (Maalox Plus*) 30 ml PO Q4H PRN PRN Reason: INDIGESTION Chlorpromazine HCl (Thorazine Tab*) 100 mg PO Q6H PRN PRN Reason: AGITATION Haloperidol (Haldol Tab*) 5 mg PO Q6H PRN PRN Reason: AGITATION Lorazepam (Ativan Tab(*)) 2 mg PO Q4H PRN PRN Reason: ANXIETY Multivitamins (Theragran Tab*) 1 tab PO DAILY [facility] Last Admin: 03/22/18 10:07 Dose: Not Given Paliperidone (Invega Er Tab*) 6 mg PO DAILY CHERYL - Discharge Plan Discharge Plan: Outpatient Follow Up Outpatient Program: [facility]
[2018-03-23] MEDS: Vitamin THERAPEUTIC TAB PO SCH (12:40)
[2018-03-23] MEDS: Paliperidone ER TAB* 6 MG TAB.ER PO SCH (21:21)
[2018-03-24] MEDS: Paliperidone ER TAB* 6 MG TAB.ER PO SCH (09:49)
[2018-03-24] MEDS: Vitamin THERAPEUTIC TAB PO SCH (09:49)
--- NOTE | 2018-03-24 12:39 | PN ---
Subjective - Subjective Date of Service: 03/24/18 Service Type: 07306 Hosp care 15 min low complexity Subjective: Patient continues to wear a pillowcase around her hair and a sock covering her eyes. She has been seclusive to her room except for meals. She is irritable and dismissive of staff. She states "save your voice" when continuity writer attempts conversation. Encouraged to partner with staff to work on treatment goals. Objective - Appearance Appearance: Well Developed/Nourished Dysmorphic Features: Yes Hygiene: Mal-odorous Grooming: Disheveled - Behavior Psychomotor Activities: Normal Exhibits Abnormal Movement: No - Attitude and Relatedness Attitude and Relatedness: Psychotically Related - Speech Quality: Pressured Latencies: Short Quantity: Terse - Mood Patient's Decription of Mood: no answer - Affect Observed Affect: Constricted Affect Consistent with: Dysphoria - Thought Process Patient's Thought Process: Impoverished Thought Content: Yes Paranoid Ideation, No Passive Wish, No Suicidal Planning, No Homicidal Ideation - Sensorium Experiencing Hallucinations: Yes Type of Hallucinations: Visual: No, Auditory: Yes, Command: No - Level of Consciousness Level of Consciousness: Alert Orientation: Yes Intact, Yes Orientated to Time, Yes Orientated to Place, Yes Orientated to Person - Impulse Control Impulse Control: Impaired - Insight and Judgement Insight and Judgement: Impaired - Group Participation Particating in Group Activities: No - Medication Management Medication Management Adherence: No Assessment - Assessment Merits Inpatient Hospitalization: For Immediate Safety, For Stabilization, To Initiate Treatment, For Discharge Planning Inpatient DSM-V Dx: F25.0 Clinical Impression: 23yo black female with history of schizoaffective d/o, undomiciled who presented to the ED shortly after being discharged less than 24hours prior. She presents as psychotic and is not willing to take medications at this time. She merits hospitalization for immediate safety and stabilization. Plan - Plan Treatment Plan: Name: MAYRA STILL Birthdate: 1995 [id number] continue acute intensive psychiatric treatment. add invega 6mg po daily; utilize thorazine, haloperidol and lorazepam as needed for agitation. will consider treatment over objection if no improvement. Continued Medication Management: Start Medication Medications: Current Medications Acetaminophen (Tylenol Tab*) 650 mg PO Q4H PRN PRN Reason: PAIN or TEMP > 101 F Al Hydrox/Mg Hydrox/Simethicone (Maalox Plus*) 30 ml PO Q4H PRN PRN Reason: INDIGESTION Chlorpromazine HCl (Thorazine Tab*) 100 mg PO Q6H PRN PRN Reason: AGITATION Haloperidol (Haldol Tab*) 5 mg PO Q6H PRN PRN Reason: AGITATION Lorazepam (Ativan Tab(*)) 2 mg PO Q4H PRN PRN Reason: ANXIETY Multivitamins (Theragran Tab*) 1 tab PO DAILY [facility] Last Admin: 03/24/18 09:49 Dose: Not Given Paliperidone (Invega Er Tab*) 6 mg PO DAILY [facility] Last Admin: 03/24/18 09:49 Dose: Not Given - Discharge Plan Discharge Plan: Consider Longer Term Tx
[2018-03-25] MEDS: Vitamin THERAPEUTIC TAB PO SCH (09:31)
[2018-03-25] MEDS: Paliperidone ER TAB* 6 MG TAB.ER PO SCH (09:31)
[2018-03-26] MEDS: Vitamin THERAPEUTIC TAB PO SCH (08:13)
[2018-03-26] MEDS: Paliperidone ER TAB* 6 MG TAB.ER PO SCH (08:13)
[2018-03-27] MEDS: Paliperidone ER TAB* 6 MG TAB.ER PO SCH (09:26)
[2018-03-27] MEDS: Vitamin THERAPEUTIC TAB PO SCH (09:26)
--- NOTE | 2018-03-27 16:39 | PN ---
Subjective - Subjective Date of Service: 03/27/18 Service Type: [id number] Hosp care 15 min low complexity Subjective: patient continues to dismiss efforts to create rapport or to participate in treatment planning. she is seclusive to room except for meals, noted to respond to internal stimuli in her room and punch jameson. patient declines to meet with senior underwriter or social work manager to discuss plans for aftercare. She states "unless you have discharge papers, there is nothing to talk about." Objective - Appearance Appearance: Well Developed/Nourished Dysmorphic Features: Yes Hygiene: Normal Grooming: Fairly Well Kept - Behavior Psychomotor Activities: Normal Exhibits Abnormal Movement: No - Attitude and Relatedness Attitude and Relatedness: Hostile Eye Contact: Poor - Speech Quality: Pressured Latencies: Long Quantity: Terse - Mood Patient's Decription of Mood: no answer - Affect Observed Affect: Tense Affect Consistent with: Dysphoria - Thought Process Thought Content: Yes Paranoid Ideation, No Passive Wish, No Suicidal Planning, No Homicidal Ideation - Sensorium Experiencing Hallucinations: No, Sensorium is Clear Type of Hallucinations: Visual: No, Auditory: No, Command: No - Level of Consciousness Level of Consciousness: Alert Orientation: Yes Intact, Yes Orientated to Time, Yes Orientated to Place, Yes Orientated to Person - Impulse Control Impulse Control: Impaired - Insight and Judgement Insight and Judgement: Impaired - Group Participation Particating in Group Activities: No - Medication Management Medication Management Adherence: No Assessment - Assessment Merits Inpatient Hospitalization: For Immediate Safety, For Stabilization, To Initiate Treatment, For Discharge Planning Inpatient DSM-V Dx: F25.0 Clinical Impression: 23yo black female with history of schizoaffective d/o, undomiciled who presented directly to to the [facility] shortly after being discharged less than 24hours prior. She presents as psychotic and is not willing to take medications at this time. She is increasingly paranoid and agitated. She is observed responding to internal stimuli and destructive in her room. She refuses to coordinate with treatment team providers for obtaining prior history or for safe discharge planning. She merits hospitalization for immediate safety and stabilization. Plan - Plan Treatment Plan: Name: MAYRA STILL Birthdate: 1995 [id number] continue acute intensive psychiatric treatment. invega 6mg po daily; utilize thorazine, haloperidol and lorazepam as needed for agitation. patient submitted court request. will pursue retention and treatment over objection Continued Medication Management: Start Medication Medications: Current Medications Acetaminophen (Tylenol Tab*) 650 mg PO Q4H PRN PRN Reason: PAIN or TEMP > 101 F Al Hydrox/Mg Hydrox/Simethicone (Maalox Plus*) 30 ml PO Q4H PRN PRN Reason: INDIGESTION Chlorpromazine HCl (Thorazine Tab*) 100 mg PO Q6H PRN PRN Reason: AGITATION Haloperidol (Haldol Tab*) 5 mg PO Q6H PRN PRN Reason: AGITATION Lorazepam (Ativan Tab(*)) 2 mg PO Q4H PRN PRN Reason: ANXIETY Multivitamins (Theragran Tab*) 1 tab PO DAILY [facility] Last Admin: 03/27/18 09:26 Dose: Not Given Paliperidone (Invega Er Tab*) 6 mg PO DAILY [facility] Last Admin: 03/27/18 09:26 Dose: Not Given - Discharge Plan Discharge Plan: Outpatient Follow Up Outpatient Program: [facility]
[2018-03-28] MEDS: Vitamin THERAPEUTIC TAB PO SCH (09:24)
[2018-03-28] MEDS: Paliperidone ER TAB* 6 MG TAB.ER PO SCH (09:24)
--- NOTE | 2018-03-28 12:16 | PN ---
Subjective - Subjective Date of Service: 03/28/18 Service Type: [id number] Hosp care 35 min high complexity Subjective: Patient exhibits poor progress and continued refusal to engage in treatment planning. She is notified of court proceeding, including pursuing Treatment over objection. She demands to be discharged and states that hospital personnel are lying about efforts to assist her. She remains seclusive, agitated and paranoid. She is observed reacting to internal stimuli and making violent threats toward various staff, especially those who are female. Objective - Appearance Appearance: Well Developed/Nourished Dysmorphic Features: Yes Hygiene: Normal Grooming: Well Kept - Behavior Psychomotor Activities: Normal Exhibits Abnormal Movement: No - Attitude and Relatedness Attitude and Relatedness: Hostile Eye Contact: Poor - Speech Quality: Pressured Latencies: Long Quantity: Terse - Mood Patient's Decription of Mood: "Upset" - Affect Observed Affect: Tense Affect Consistent with: Dysphoria - Thought Process Patient's Thought Process: Loose Associations, Tangential Thought Content: Yes Paranoid Ideation, No Passive Wish, No Suicidal Planning, No Homicidal Ideation - Sensorium Experiencing Hallucinations: Yes Type of Hallucinations: Visual: No, Auditory: Yes, Command: Yes - Level of Consciousness Level of Consciousness: Alert Orientation: Yes Intact, Yes Orientated to Time, Yes Orientated to Place, Yes Orientated to Person - Impulse Control Impulse Control: Impaired - Insight and Judgement Insight and Judgement: Impaired - Group Participation Particating in Group Activities: No - Medication Management Medication Management Adherence: No Assessment - Assessment Merits Inpatient Hospitalization: For Immediate Safety, For Stabilization Inpatient DSM-V Dx: F25.0 Clinical Impression: 23yo black female with history of schizoaffective d/o, undomiciled who presented directly to to the [facility] shortly after being discharged less than 24hours prior. She presents as psychotic and is not willing to take medications at this time. She is increasingly paranoid and agitated. She is observed responding to internal stimuli and destructive in her room. She refuses to coordinate with treatment team providers for obtaining prior history or for safe discharge planning. She merits hospitalization for immediate safety and stabilization. Plan - Plan Treatment Plan: Name: MAYRA STILL Birthdate: 1995 [id number] continue acute intensive psychiatric treatment. invega 6mg po daily; utilize thorazine, haloperidol and lorazepam as needed for agitation. patient submitted court request. will pursue retention and treatment over objection. Continued Medication Management: Start Medication Medications: Current Medications Acetaminophen (Tylenol Tab*) 650 mg PO Q4H PRN PRN Reason: PAIN or TEMP > 101 F Al Hydrox/Mg Hydrox/Simethicone (Maalox Plus*) 30 ml PO Q4H PRN PRN Reason: INDIGESTION Chlorpromazine HCl (Thorazine Tab*) 100 mg PO Q6H PRN PRN Reason: AGITATION Haloperidol (Haldol Tab*) 5 mg PO Q6H PRN PRN Reason: AGITATION Lorazepam (Ativan Tab(*)) 2 mg PO Q4H PRN PRN Reason: ANXIETY Multivitamins (Theragran Tab*) 1 tab PO DAILY [facility] Last Admin: 03/28/18 09:24 Dose: Not Given Paliperidone (Invega Er Tab*) 6 mg PO DAILY [facility] Last Admin: 03/28/18 09:24 Dose: Not Given - Discharge Plan Discharge Plan: Outpatient Follow Up Outpatient Program: [facility]
--- NOTE | 2018-03-28 15:59 | CONS ---
CC: Dr. Grande * CONSULTATION REPORT: DATE OF CONSULT: 03/28/18 CONSULTING PSYCHIATRIST: Dr. Grande. CHIEF COMPLAINT: "I don't want to talk to you." HISTORY OF PRESENT ILLNESS: Ms. Leal is a 23-year-old lady with a past medical history of schizoaffective disorder, who was admitted to the mental health unit from 03/13/18 to 03/17/18. She had presented to the emergency room with complaints of suicidal ideation without plan and she was found to be uncooperative, angry, agitated, and diagnosed with psychotic disorder. She was admitted to the mental health unit and was thought to be improved on 03/17/18 with no suicidal ideation or urges for self-harm. She was discharged to have a followup appointment at [facility] on 03/22/18 and she was advised to go straight to [facility] after discharge to meet with Anne Veronica. She was discharged on 03/17/18 and returned to the emergency room on 03/18/18. She states that "this [facility] thing didn't work out." She does not want to elaborate further, but as per HPI, she was "not let in," so she spent the night outside, drinking with no tent. She was felt to still have disorganized and bizarre thinking and was admitted to the mental health unit once again. During this stay, the patient continues to be dysphoric with flat affect, refusing to attend groups, refusing to take medications. She continues to make aggressive statements towards staff and did not share much information with me. I agree with Dr. Grande's assessment that the patient continues to be psychotic , increasingly paranoid as demonstrated by her statement that "you guys are keeping me here against my will" "I will do just fine outside" but she is unable to tell me how she will fix her living arrangements, how she is going to deal with her medications and other things that will be necessary for her to manage independently in the outpatient setting. She has been observed responding to internal stimuli, has had disruptive behavior in her room and she does require hospitalization for immediate safety and stabilization. She is very upset at this time as she was notified of court proceeding including pursuing treatment over objection. She continues to demand to be discharged and states the hospital staff is lying including stating that she didn't know she had a test when it is clearly documented that the patient requested one before because her period was late and the test was negative. A 2PC form was filled and signed and the plan is as described above to pursue court order, so the patient can continue her treatment. Physical examination is limited as patient did not allow me to get closer. She' s a well built young lady standing up in the corner of her room , rocking sideways. She makes poor eye contact and does not face the examiner, just looks at me side eyed. TIME SPENT: Approximately 20 minutes was spent to complete this consultation. [id number]/CPS #: [id number] ANSHUL
[2018-03-29] MEDS: Vitamin THERAPEUTIC TAB PO SCH (09:57)
[2018-03-29] MEDS: Paliperidone ER TAB* 6 MG TAB.ER PO SCH (09:57)
[2018-03-30] MEDS: Vitamin THERAPEUTIC TAB PO SCH (08:57)
[2018-03-30] MEDS: Paliperidone ER TAB* 6 MG TAB.ER PO SCH (08:57)
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
[2018-03-31] MEDS: Vitamin THERAPEUTIC TAB PO SCH (08:44)
[2018-03-31] MEDS: Paliperidone ER TAB* 6 MG TAB.ER PO SCH (08:44)
--- NOTE | 2018-03-31 16:10 | PN ---
Subjective - Subjective Subjective: Jerri had a day court to request release. She was calm, laughing to self and appearing to respond to IS, while waiting for the hearing. She testified that she can take care of herself if discharged, that she does not have and mental illness and that she does neither need nor want medications to reverse her psychotic symptoms. At the end of the hearing, correspondence review clerk Magy sided with the hospital and granted retention and TOO. Objective - Appearance Appearance: Healthy Appearing Dysmorphic Features: No Hygiene: Normal Grooming: Well Kept - Behavior Psychomotor Activities: Normal Exhibits Abnormal Movement: No - Attitude and Relatedness Attitude and Relatedness: Psychotically Related Eye Contact: Fair - Speech Quality: Unpressured Latencies: Normal Quantity: Appropriate - Mood Patient's Decription of Mood: "Okay" - Affect Observed Affect: Non-labile Affect Consistent with: Dysphoria - Thought Process Patient's Thought Process: Disorganized, Over Inclusive Thought Content: No Passive Wish, No Suicidal Planning, No Homicidal Ideation, No Paranoid Ideation - Sensorium Experiencing Hallucinations: No, Sensorium is Clear - Level of Consciousness Level of Consciousness: Alert Orientation: Yes Intact - Impulse Control Impulse Control: Intact - Insight and Judgement Insight and Judgement: Impaired - Group Participation Particating in Group Activities: No - Medication Management Medication Management Adherence: No Assessment - Assessment Merits Inpatient Hospitalization: To Initiate Treatment Inpatient DSM-V Dx: F25.0 Clinical Impression: 23 yo female with h/o schizoaffective disorder and non-adherence with psychiatric treatment who needs continued admission to initiate court-ordered treatment (under retention and TOO orders). Plan - Plan Treatment Plan: Name: MAYRA [facility] Birthdate: 1995 [id number] Continued Medication Management: Start Medication Medications: Current Medications Acetaminophen (Tylenol Tab*) 650 mg PO Q4H PRN PRN Reason: PAIN or TEMP > 101 F Al Hydrox/Mg Hydrox/Simethicone (Maalox Plus*) 30 ml PO Q4H PRN PRN Reason: INDIGESTION Chlorpromazine HCl (Thorazine Tab*) 100 mg PO Q6H PRN PRN Reason: AGITATION Haloperidol (Haldol Tab*) 5 mg PO Q6H PRN PRN Reason: AGITATION Lorazepam (Ativan Tab(*)) 2 mg PO Q4H PRN PRN Reason: ANXIETY Multivitamins (Theragran Tab*) 1 tab PO DAILY [facility] Last Admin: 03/31/18 08:44 Dose: Not Given Paliperidone (Invega Er Tab*) 6 mg PO DAILY [facility] Last Admin: 03/31/18 08:44 Dose: Not Given - Discharge Plan Discharge Plan: Inpatient Hospitalization Outpatient Program: TBD
[2018-03-31] MEDS ORDERED: risperiDONE-M * 1 MG TAB.ORADIS PO PRN (16:51)
[2018-04-01] MEDS: Paliperidone ER TAB* 6 MG TAB.ER PO SCH (09:28)
[2018-04-02] MEDS: Paliperidone ER TAB* 6 MG TAB.ER PO SCH (10:21)
[2018-04-03] MEDS ORDERED: Paliperidone SUSTENNA* 234 MG/1.5 ML IM ONE (08:50)
[2018-04-03] MEDS: Paliperidone ER TAB* 6 MG TAB.ER PO SCH (10:23)
--- NOTE | 2018-04-03 10:31 | PN ---
Subjective - Subjective Date of Service: 04/03/18 Service Type: [id number] Hosp care 25 min moderate complexity Subjective: Patient refused po medications over the weekend. Orderly attempted to discuss treatment plan (treatment over objection per court order) but patient argumentative. She demanded to discuss diagnosis and other information that staff has attempted to explain previously. Multiple staff present for administering IM invega sustenna. Patient allowed procedure writer to place medication without need for physical hold. First invega sustenna booster given: 234mg IM in Right deltoid, no drainage, bandaid applied. Lot #[id number] exp . Patient requested to discuss medication and procedure writer attempted. She stated "I don 't want your mouth" and requested written information, which was given to her by RN and RT. Objective - Appearance Appearance: Well Developed/Nourished Dysmorphic Features: No Hygiene: Normal Grooming: Well Kept - Behavior Psychomotor Activities: Normal Exhibits Abnormal Movement: No - Attitude and Relatedness Attitude and Relatedness: Hostile Eye Contact: Poor - Speech Quality: Pressured Latencies: Short Quantity: Terse - Mood Patient's Decription of Mood: "Upset" - Affect Observed Affect: Tense - Thought Process Patient's Thought Process: Disorganized Thought Content: Yes Paranoid Ideation, No Passive Wish, No Suicidal Planning, No Homicidal Ideation - Sensorium Experiencing Hallucinations: No, Sensorium is Clear Type of Hallucinations: Visual: Yes, Auditory: Yes, Command: No - Level of Consciousness Level of Consciousness: Alert Orientation: Yes Intact, Yes Orientated to Time, Yes Orientated to Place, Yes Orientated to Person - Impulse Control Impulse Control: Impaired - Insight and Judgement Insight and Judgement: Impaired - Group Participation Particating in Group Activities: No - Medication Management Medication Management Adherence: Partial Assessment - Assessment Merits Inpatient Hospitalization: For Immediate Safety, For Stabilization, To Initiate Treatment, Pending Safe DC Plan Inpatient DSM-V Dx: F25.0 Clinical Impression: 23yo black female with history of schizoaffective d/o, undomiciled who presented directly to to the [facility] shortly after being discharged less than 24hours prior. She presents as psychotic and is not willing to take medications at this time. She is increasingly paranoid and agitated. She is observed responding to internal stimuli and destructive in her room. She refuses to coordinate with treatment team providers for obtaining prior history or for safe discharge planning. She merits hospitalization for immediate safety and stabilization. Plan - Plan Treatment Plan: Name: MAYRA STILL Birthdate: 1995 [id number] continue acute intensive psychiatric treatment. given first dose of invega sustenna IM 234mg; will receive second dose in 3-5 days. DC oral paliperidone. continue to utilize risperidone and lorazepam as needed for agitation. court order obtained for TOO 03/31/18. Continued Medication Management: Start Medication Medications: Current Medications Acetaminophen (Tylenol Tab*) 650 mg PO Q4H PRN PRN Reason: PAIN or TEMP > 101 F Al Hydrox/Mg Hydrox/Simethicone (Maalox Plus*) 30 ml PO Q4H PRN PRN Reason: INDIGESTION Lorazepam (Ativan Tab(*)) 2 mg PO Q4H PRN PRN Reason: ANXIETY Risperidone (Risperdal-M Tab *) 1 mg PO Q6H PRN; Protocol PRN Reason: AGITATION - Discharge Plan Discharge Plan: Outpatient Follow Up Outpatient Program: [facility]
--- NOTE | 2018-04-04 12:24 | PN ---
Subjective - Subjective Date of Service: 04/04/18 Service Type: [id number] Hosp care 15 min low complexity Subjective: Patient is increasingly interactive in the milieu, possibly due to construction ending and new space opening. She was observed dancing and smiling in the new space. This morning, patient walked past race and sports book writer and averted eye contact. Registered Nurse Midwife greeted and she stated "Don't talk to me." She is avoidant of interactions with social science analyst, as well. Objective - Appearance Appearance: Well Developed/Nourished Dysmorphic Features: No Hygiene: Normal Grooming: Well Kept - Behavior Psychomotor Activities: Normal Exhibits Abnormal Movement: No - Attitude and Relatedness Attitude and Relatedness: Irritable Eye Contact: Poor - Speech Quality: Unpressured Latencies: Long Quantity: Terse - Mood Patient's Decription of Mood: no answer - Affect Observed Affect: Expansive Affect Consistent with: Euphoria - Thought Process Patient's Thought Process: Disorganized Thought Content: Yes Paranoid Ideation, No Passive Wish, No Suicidal Planning, No Homicidal Ideation - Sensorium Experiencing Hallucinations: Yes Type of Hallucinations: Visual: Yes, Auditory: Yes, Command: No - Level of Consciousness Level of Consciousness: Alert Orientation: Yes Intact, Yes Orientated to Time, Yes Orientated to Place, Yes Orientated to Person - Impulse Control Impulse Control: Impaired - Insight and Judgement Insight and Judgement: Impaired - Group Participation Particating in Group Activities: No - Medication Management Medication Management Adherence: Partial Assessment - Assessment Merits Inpatient Hospitalization: For Immediate Safety, For Stabilization, Consolidate Improvements, Pending Safe DC Plan Inpatient DSM-V Dx: F25.0 Clinical Impression: 23yo black female with history of schizoaffective d/o, undomiciled who presented directly to to the [facility] shortly after being discharged less than 24hours prior. She presents as psychotic and is not willing to take medications at this time. She is increasingly paranoid and agitated. She is observed responding to internal stimuli and destructive in her room. She refuses to coordinate with treatment team providers for obtaining prior history or for safe discharge planning. She merits hospitalization for immediate safety and stabilization. Plan - Plan Treatment Plan: Name: MAYRA STILL Birthdate: 1995 [id number] continue acute intensive psychiatric treatment. given first dose of invega sustenna IM 234mg; will receive second dose on . DC oral paliperidone. continue to utilize risperidone and lorazepam as needed for agitation. court order obtained for TOO 03/31/18. Continued Medication Management: Start Medication Medications: Current Medications Acetaminophen (Tylenol Tab*) 650 mg PO Q4H PRN PRN Reason: PAIN or TEMP > 101 F Al Hydrox/Mg Hydrox/Simethicone (Maalox Plus*) 30 ml PO Q4H PRN PRN Reason: INDIGESTION Lorazepam (Ativan Tab(*)) 2 mg PO Q4H PRN PRN Reason: ANXIETY Paliperidone Palmitate (Invega Sustenna*) 156 mg IM ONCE ONE Stop: 04/06/18 09:01 Risperidone (Risperdal-M Tab *) 1 mg PO Q6H PRN; Protocol PRN Reason: AGITATION - Discharge Plan Discharge Plan: Outpatient Follow Up Outpatient Program: [facility]
--- NOTE | 2018-04-05 13:29 | PN ---
Subjective - Subjective Date of Service: 04/05/18 Service Type: [id number] Hosp care 15 min low complexity Subjective: Leilani is seen in coverage for NPP, Emma Bharat. She is found in her room , alone, sitting with awkward posture on her bed, somewhat slouched to the side. She is superficially cooperative with the interview and complains about local pain and swelling at the right deltoid site of her loading paliperidone injection, which was administered on Tuesday of this week. "Look at it. It's all raised up and warm. Upon examination it appears identical to her non affected left shoulder. At any rate, the patient is asked about discharge planning and she does perk up and states that she will sign the necessary release forms allowing SW to contact outpatient providers. She denies SI or HI. Objective - Appearance Appearance: Well Developed/Nourished Dysmorphic Features: No Hygiene: Normal Grooming: Fairly Well Kept - Behavior Psychomotor Activities: Normal Exhibits Abnormal Movement: No - Attitude and Relatedness Attitude and Relatedness: Superficially Cooperative Eye Contact: Fair - Speech Quality: Unpressured Latencies: Normal Quantity: Terse - Mood Patient's Decription of Mood: "Okay" - Affect Observed Affect: Unvariable Affect Consistent with: Euthymia - Thought Process Patient's Thought Process: Circumstantial Thought Content: Yes Paranoid Ideation, No Passive Wish, No Suicidal Planning, No Homicidal Ideation - Sensorium Experiencing Hallucinations: No, Sensorium is Clear Type of Hallucinations: Visual: No, Auditory: No, Command: No - Level of Consciousness Level of Consciousness: Alert Orientation: Yes Intact, Yes Orientated to Time, Yes Orientated to Place, Yes Orientated to Person - Impulse Control Impulse Control: Poor - Insight and Judgement Insight and Judgement: Impaired - Group Participation Particating in Group Activities: No - Medication Management Medication Management Adherence: Yes Assessment - Assessment Merits Inpatient Hospitalization: For Immediate Safety, For Stabilization Inpatient DSM-V Dx: F25.0 Clinical Impression: 23 y.o. single, AA female, recently discharged from the [facility], who returned on an involuntary basis due to psychotic, bizarre behavior in the community and inability to care for herself. Plan - Plan Treatment Plan: Name: MAYRA STILL Birthdate: 1995 [id number] Per the voice teacher's order, the patient has been initiated on paliperidone Sustenna 234mg PO IM and will receive the booster dose of 156mg IM tomorrow, April 06. She remains paranoid, guarded and suspicious. Continue to treat on an inpatient basis. Depending on her progress after the booster dose of antipsychotic, we may need to pursue State Hospitalization. Continued Medication Management: Start Medication Medications: Current Medications Acetaminophen (Tylenol Tab*) 650 mg PO Q4H PRN PRN Reason: PAIN or TEMP > 101 F Al Hydrox/Mg Hydrox/Simethicone (Maalox Plus*) 30 ml PO Q4H PRN PRN Reason: INDIGESTION Lorazepam (Ativan Tab(*)) 2 mg PO Q4H PRN PRN Reason: ANXIETY Paliperidone Palmitate (Invega Sustenna*) 156 mg IM ONCE ONE Stop: 04/06/18 09:01 Risperidone (Risperdal-M Tab *) 1 mg PO Q6H PRN; Protocol PRN Reason: AGITATION - Discharge Plan Discharge Plan: Inpatient Hospitalization
[2018-04-06] MEDS ORDERED: Paliperidone SUSTENNA* 156 MG/1 ML IM ONE (09:00)
--- NOTE | 2018-04-06 15:54 | PN ---
[facility]: Group Therapy Note - Service Type Service Type: [id number] Group Psychotherapy - Group Participation Patient Participating in Group: Yes Level of Group Participation: Attentive, Spontaneously Participate Relatedness to Group: Linda - Leilani participated well and was pleasant throughout group. She was on topic and had many positive contributions. She did not make eye contact, but smiled politely., Well Related - Appearance Appearance: Well Developed/Nourished, Healthy Appearing Hygiene: Normal Grooming: Well Kept
--- NOTE | 2018-04-07 14:06 | PN ---
Subjective - Subjective Date of Service: 04/07/18 Service Type: [id number] Hosp care 15 min low complexity Subjective: Leilani is seen for follow up in coverage for NPP, Emma Nicholson. Staff reports that she tolerated the booster dose of paliperidone Sustena well and that she seems better related, less irritable and more participatory on the unit. During our session she is cooperative with slight speech latency, poor eye contact and somewhat odd interpersonal style. She complains to me that she requested from staff that someone be assigned to help her with her writing and sentence structure and nothing has been done about this. She has roughly 10th grade education as well as a GED. She is informed that this is not within the typical purview of the milieu unit, however, I asked her about college participation and she expresses an interest in this. "Maybe at a [employer]. You gotta start somewhere." She does appear far less adversarial than previous encounters and continues to deny SI or HI. Objective - Appearance Appearance: Well Developed/Nourished Dysmorphic Features: No Hygiene: Normal Grooming: Fairly Well Kept - Behavior Psychomotor Activities: Normal Exhibits Abnormal Movement: No - Attitude and Relatedness Attitude and Relatedness: Cooperative Eye Contact: Fair - Speech Quality: Unpressured Latencies: Long Quantity: Terse - Mood Patient's Decription of Mood: "Okay" - Affect Observed Affect: Unvariable Affect Consistent with: Euthymia - Thought Process Patient's Thought Process: Circumstantial Thought Content: No Passive Wish, No Suicidal Planning, No Homicidal Ideation, No Paranoid Ideation - Sensorium Experiencing Hallucinations: No, Sensorium is Clear Type of Hallucinations: Visual: No, Auditory: No, Command: No - Level of Consciousness Level of Consciousness: Alert Orientation: Yes Intact, Yes Orientated to Time, Yes Orientated to Place, Yes Orientated to Person - Impulse Control Impulse Control: Poor - Insight and Judgement Insight and Judgement: Impaired - Group Participation Particating in Group Activities: Yes - Medication Management Medication Management Adherence: Yes Assessment - Assessment Merits Inpatient Hospitalization: For Immediate Safety, For Stabilization Inpatient DSM-V Dx: F25.0 Clinical Impression: 23 y.o. single, AA female, recently discharged from the [facility], who returned on an involuntary basis due to psychotic, bizarre behavior in the community and inability to care for herself. Plan - Plan Treatment Plan: Name: MYARA STILL Birthdate: 1995 [id number] Per the privacy specialist's order, the patient has been initiated on paliperidone Sustenna 234mg PO IM and received the booster dose of 156mg IM yesterday. She is improving but still displays mild paranoid symptomatology. Continue to treat on an inpatient basis. Depending on her progress after the booster dose of antipsychotic, we may need to pursue State Hospitalization. Continued Medication Management: Start Medication Medications: Current Medications Acetaminophen (Tylenol Tab*) 650 mg PO Q4H PRN PRN Reason: PAIN or TEMP > 101 F Al Hydrox/Mg Hydrox/Simethicone (Maalox Plus*) 30 ml PO Q4H PRN PRN Reason: INDIGESTION Lorazepam (Ativan Tab(*)) 2 mg PO Q4H PRN PRN Reason: ANXIETY Risperidone (Risperdal-M Tab *) 1 mg PO Q6H PRN; Protocol PRN Reason: AGITATION - Discharge Plan Discharge Plan: Inpatient Hospitalization
--- NOTE | 2018-04-10 13:07 | PN ---
Subjective - Subjective Date of Service: 04/10/18 Service Type: 78117 Hosp care 25 min moderate complexity Subjective: Patient sitting on bed, drawing and engages in conversation upon approach. She is mildly guarded and demonstrates poor eye contact with short latencies. Patient reports vague aches in various areas and requests a "professional" to assess these. She is adamant that she does not want medications and agrees to a PT consult. She also reports frustration that she has not received a test despite being told that this test was negative per admission bloodwork. She states she would like a new test. She also states she bumped her head on the hospital bed; agrees to CT of brain. Patient reports frustration that she has not been told about discharge plan and blames treatment team for not approaching her. Patient receptive to information that she had been refusing to participate in treatment but has greatly improved in the past week. Informed that her case will be presented at [facility] tomorrow. Objective - Appearance Appearance: Well Developed/Nourished Dysmorphic Features: No Hygiene: Normal Grooming: Well Kept - Behavior Psychomotor Activities: Normal Exhibits Abnormal Movement: No - Attitude and Relatedness Attitude and Relatedness: Superficially Cooperative Eye Contact: Poor - Speech Quality: Unpressured Latencies: Short Quantity: Appropriate - Mood Patient's Decription of Mood: "Fine" - Affect Observed Affect: Constricted Affect Consistent with: Euthymia - Thought Process Patient's Thought Process: Circumstantial Thought Content: Yes Paranoid Ideation, No Passive Wish, No Suicidal Planning, No Homicidal Ideation - Sensorium Experiencing Hallucinations: Yes Type of Hallucinations: Visual: No, Auditory: Yes, Command: No - Level of Consciousness Level of Consciousness: Alert Orientation: Yes Intact, Yes Orientated to Time, Yes Orientated to Place, Yes Orientated to Person - Impulse Control Impulse Control: Tenuous - Insight and Judgement Insight and Judgement: Impaired - Group Participation Particating in Group Activities: No - Medication Management Medication Management Adherence: Partial Assessment - Assessment Merits Inpatient Hospitalization: For Immediate Safety, For Stabilization, For Discharge Planning Inpatient DSM-V Dx: F25.0 Clinical Impression: 23yo black female with history of schizoaffective d/o, undomiciled who presented directly to to the [facility] in a psychotic state after being discharged less than 24hours prior. She refused to participate in treatment and Treatment Over Objection was ruled by [facility]. Plan - Plan Treatment Plan: Name: MAYRA STILL Birthdate: 1995 [id number] Per the diagnostic technologist's order, the patient has been initiated on paliperidone Sustenna 234mg PO IM and received the booster dose of 156mg IM yesterday. She is improving but still displays mild paranoid symptomatology. Continue to treat on an inpatient basis. Depending on her progress after the booster dose of antipsychotic, we may need to pursue State Hospitalization. Continued Medication Management: Start Medication Medications: Current Medications Acetaminophen (Tylenol Tab*) 650 mg PO Q4H PRN PRN Reason: PAIN or TEMP > 101 F Al Hydrox/Mg Hydrox/Simethicone (Maalox Plus*) 30 ml PO Q4H PRN PRN Reason: INDIGESTION Lorazepam (Ativan Tab(*)) 2 mg PO Q4H PRN PRN Reason: ANXIETY Risperidone (Risperdal-M Tab *) 1 mg PO Q6H PRN; Protocol PRN Reason: AGITATION - Discharge Plan Discharge Plan: Outpatient Follow Up Outpatient Program: [facility]
--- NOTE | 2018-04-10 14:47 | RAD ---
INDICATION: Patient report portable mapping her head COMPARISON: CT brain March 12, 2018 TECHNIQUE: Noncontrast axial source images were acquired from the skull base to the vertex. FINDINGS: Ventricles/sulci: The ventricles and cisterns are normal in size and configuration for age. Brain parenchyma: There is no focal parenchymal finding, evidence of intracranial mass, or intracranial mass effect. Intracranial hemorrhage:None. Extra-axial spaces: There are no abnormal extra axial fluid collections or evidence of extra-axial mass. Calvarium: There is no calvarial fracture or other calvarial abnormality. Scalp: There is no evidence of scalp or extracalvarial soft tissue abnormality. Paranasal sinuses/mastoid: The paranasal sinuses and mastoid air cells are clear. Other: None. IMPRESSION: NEGATIVE EXAMINATION, UNCHANGED.
--- NOTE | 2018-04-12 16:58 | PN ---
Subjective - Subjective Date of Service: 04/12/18 Service Type: [id number] Hosp care 25 min moderate complexity Subjective: Patient is noted to be interactive with select staff and is more present in milieu. She is bright upon approach and engages in conversation wtih proposal lead writer. She minimizes effect of invega and attributes her progress to changing her mind and deciding to work with us. She has little insight into her adversarial actions prior to TOO court hearing and receiving second booster of Invega sustenna. She met with [facility] team for a screening. Regional Driver and Sandra Maritnez LMSW explained to patient that the team is not available to coordinate discharge on 04/13. She states she is agreeable to working with [facility] and staying until Tuesday morning when the team is available for discharge. Patient continues to endorse AH/VH of her "boyfriend." She states her ex- boyfriend, Germain, visited her on the unit but that she has no desire to resume a relationship with him. She gives Sandra the contact information for Germain in order to verify homelessness prior to admission. Objective - Appearance Appearance: Well Developed/Nourished Dysmorphic Features: No Hygiene: Normal Grooming: Well Kept - Behavior Psychomotor Activities: Normal Exhibits Abnormal Movement: No - Attitude and Relatedness Attitude and Relatedness: Cooperative Eye Contact: Fair - Speech Quality: Unpressured Latencies: Normal Quantity: Appropriate - Mood Patient's Decription of Mood: "Good" - Affect Observed Affect: Good Affect Consistent with: Euthymia - Thought Process Patient's Thought Process: Loose Associations, Circumstantial Thought Content: Yes Paranoid Ideation, No Passive Wish, No Suicidal Planning, No Homicidal Ideation - Sensorium Experiencing Hallucinations: Yes Type of Hallucinations: Visual: Yes, Auditory: Yes, Command: No - Level of Consciousness Level of Consciousness: Alert Orientation: Yes Intact, Yes Orientated to Time, Yes Orientated to Place, Yes Orientated to Person - Impulse Control Impulse Control: Tenuous - Insight and Judgement Insight and Judgement: Fair - Group Participation Particating in Group Activities: No - Medication Management Medication Management Adherence: Yes Assessment - Assessment Merits Inpatient Hospitalization: Consolidate Improvements, For Discharge Planning, Pending Safe DC Plan Inpatient DSM-V Dx: F25.0 Clinical Impression: 23yo black female with history of schizoaffective d/o, undomiciled who presented directly to to the [facility] in a psychotic state after being discharged less than 24hours prior. She refused to participate in treatment and Treatment Over Objection was ruled by [facility]. Plan - Plan Treatment Plan: Name: MAYRA STILL Birthdate: 1995 [id number] Per the associate juvenile court judge's order, the patient has been initiated on paliperidone Sustenna 234mg PO IM and received the second booster dose of 156mg IM on 04/06/18. She is improving but still displays mild paranoid symptomatology. Patient has met with [facility] team and will be opened as a client at discharge from hospital. Continued Medication Management: Start Medication Medications: Current Medications Acetaminophen (Tylenol Tab*) 650 mg PO Q4H PRN PRN Reason: PAIN or TEMP > 101 F Al Hydrox/Mg Hydrox/Simethicone (Maalox Plus*) 30 ml PO Q4H PRN PRN Reason: INDIGESTION Lorazepam (Ativan Tab(*)) 2 mg PO Q4H PRN PRN Reason: ANXIETY Risperidone (Risperdal-M Tab *) 1 mg PO Q6H PRN; Protocol PRN Reason: AGITATION - Discharge Plan Discharge Plan: Outpatient Follow Up Outpatient Program: ACT
[2018-04-14 08:05] VITALS: BP 123/82
--- NOTE | 2018-04-17 23:16 | DS ---
CC: [facility] team DISCHARGE SUMMARY: DATE OF ADMISSION: 03/18/18 DATE OF DISCHARGE: 04/14/18 SUPERVISING PSYCHIATRIST: Dr. Richie Amaya DISCHARGE DIAGNOSIS: Schizoaffective disorder, bipolar type. CONDITION AT THE TIME OF DISCHARGE: Improved. The patient is alert and oriented and able to make ne eds known. She denies suicidal ideations or urges for self- harm. She has been participating in dis charge planning conversation. She met with the ACT team and been screened and agrees to continue wor jaylen with them postdischarge. She is euthymic with broad affect and has good eye contact. She repor ts desire to return to the community and utilize older adult social work specialist assistance. She states motivation to obtain employment, insight examples of having worked very hard for employers in the past. She has a lso expressed desire to complete education goals including going to community college. The patient c ontinues to exhibit positive symptoms. However, she has been increasingly participatory. She denies suicidal ideation, homicidal ideation. She has been in behavioral control. MENTAL STATUS EXAM: The patient is a 23-year-old black female, who is adequately groomed and casuall y dressed. As stated above, she is cooperative with conversation and generally pleasant. The patien t is alert and oriented x3. Speech is soft and articulate. Her mood is euthymic. Affect has full r adamaris. Thought process is circumstantial in regards to discharge. Thought content is positive for AV hallucinations. The patient denies SI, HI, , or urges to harm herself. Insight and judgment are f air and much improved. INSTRUCTIONS GIVEN TO THE PATIENT: A. Medications: Invega Sustenna IM monthly. She was given a mina ding dose of 234 mg on 04/03/18 and the second loading dose of 156 mg on , 04/06/18. Her next injection is due on 04/27/18. B. Diet is regular. C. Activity: Ambulation as tolerated. Tobacco cessation is not applicable as the patient identifie s as a nonsmoker. There are no past pending labs or diagnostic studies. D. Substance abuse followup is not applicable as the patient denies substance use and did not give u rine specimen for urine tox to be done. E. Followup care: As stated above, the patient is being discharged with the [facility] team who a ssisted in transportation at the time of discharge. [place] DSS. The patient was referred to [facility] for emergency assistance and housing. The patient was also given information for [facility] referral line for primary care provider. G. Substance abuse. Followup not applicable. HOSPITAL COURSE: Part A: Reason for admission: The patient presented to the emergency department on 03/18/18 which was within 24 hours of being discharged from this unit. She had previously been admi tted to this unit due to bizarre psychotic behaviors. She was admitted on voluntary status at that [facility]. She submitted her 72-hour notice and was discharged on 03/17/18 on no medication as she had ref used. She also was instructed to follow with the [facility] which she agre ed to do so and had tried to do so prior to admission. At discharge, the patient was instructed to g o directly to [facility] to identify housing options. Apparently, the patient was paranoid, vague, and did not cooperate with interview and give information necessary to procure emergency housing. The patien real slept outside and returned to the door of this unit expressing to "get more help." The patient was admitted involuntarily at this time due to evidence that she had poor insight and was unable to care for herself in a less restrictive environment. During this admission, the patient was increasingly paranoid, agitated. She continued to respond to internal stimuli. At the beginning of the hospitalization, the patient was cooperative and agreeable. She participated in an interview wi this provider and other providers. She identified that she has "boyfriend within" and identifies that he was a visual and auditory hallucination. She stated that there were other voices but that e did not listen to those and she primarily listened to her boyfriend. She was guarded and that she would not give information about her previous housing situation or other people with whom she had trung ed in the previous admission, she told this provider that as a teenager, her parents drove from [facility] to [place] and dropped she and her siblings off. She reported that she did not have contact with [facility] various family members because of "the bad things they did to her." While on the unit as stated tammi rodgers, the patient was increasingly paranoid. She became more agitated and irritable. She was dismis sive to staff and providers. She declined to sign release of the information in order to gather refe rrals for discharge planning. We converted her to 2 PC status and [facility] was granted treatment over objection after the patient attended az urt on 03/31/18. While en route back to the hospital, security was notified of pending arrival. Whe n social work and the patient arrived back to hospital grounds, she attempted to run from the [facility]. She was redirected with the assistance of security and brought back to the unit. While on unit, she was seclusive to self. She avoided interactions with others. She was either irritable o r sympathetic for roommates. She consistently made complaints about staff and the care she was receiv ing at the hospital. She continued to demonstrate poor insight in regard to mental health diagnosis. She was given Invega Sustenna per treatment over objection and the first dose 234 mg IM on 04/03/18. She was given her second booster dose of Invega Sustenna 156 mg on , 04/06/18. The week following the initiation of her long-acting injectable, the patient was noted to have improv ed affect and interactions with staff and peers. However, she was primarily seclusive. She engaged in conversation. She continued to make complaints about the care she was receiving. She demonstrate d poor insight and that she blamed external forces on reasons why she was still hospitalized. She di d sign release of information and agreed to meet with the ACT team. She met with this provider and r equested physical assessment for shoulder pain and various generalized aches. She agreed to physical therapy evaluation and participated in this fully. She denied need for medications. She also repor ashley that she had bumped her head on her bed frame and requested radiology. We obtained a CT of the b rain which was unremarkable. The patient requested a test and was notified that she had be en tested for when in the emergency department, however, she did not trust this information and agreed to have repeat test that was negative. We also obtained hemoglobin A1c and lip id panel due to second generation antipsychotic treatment. The patient continued to refuse to give u rine specimen for toxicology. On 04/12/18, the patient met with the ACT team and was scre ened. Homelessness was verified and DSS was notified. On 04/14/18 day of discharge, the patient was pleasant and cooperative. She was eagerly anticipating being discharged with the ACT team. The mor meenu of discharge, Yaa from [facility] arrived. She met with Yaa and they completed intake paperwor k for ACT and the patient was given discharge instructions by nursing staff. She was discharged with Yaa and they went to [facility] to identify available resources. NICK HERCULES, SPOTTER [id number]/CPS #: [id number]
== END 2018-04-14 08:47 | disposition home or self-care (01) | DRG 750 ==
LOC: ED 12:29 → BSU 16:35
PROVIDERS: ADMIT Psychiatry & Neurology Psychiatry; ATTEND Psychiatry & Neurology Psychiatry
PROC: GZHZZZZ Group Psychotherapy (ICD-10-PCS; principal; 2018-04-06)
DX: F25.0 Schizoaffective disorder, bipolar type (principal); J45.909 Unspecified asthma, uncomplicated; F17.210 Nicotine dependence, cigarettes, uncomplicated; N92.6 Irregular menstruation, unspecified; F10.10 Alcohol abuse, uncomplicated; Y90.9 Presence of alcohol in blood, level not specified; Z59.0 Homelessness; R45.1 Restlessness and agitation
CPT/HCPCS: 36415; 70450; 80053; 80061; 80320; 80329; 81003; 83036; 84443; 84702; 85025; 90853; 93005; 99222; 99231; 99232; 99233; 99238; 99283; A9270-GY; G0480

== ENCOUNTER 2018-05-22 19:47 | Emergency (ER) | payer MEDICAID ==
--- NOTE | 2018-05-23 01:29 | ED ---
Psychiatric Complaint - HPI Summary HPI Summary: Pt is a 23 y/o female who presents to the ED c/o an eye issue. She states she keeps looking upwards and cannot look down. Pt also has blurry vision and pain above her eyes. She has schizoaffective disorder and recently started Invega. Pt denies using any drugs or alcohol. She has been depressed lately. Pt does not have a psychiatrist. She states she has been hearing voices, but says they are normal and not scary. Pt denies any SI or HI. She was sent here by the ACT team. - History Of Current Complaint Chief Complaint: EDEyeProblem Time Seen by Provider: 05/23/18 00:56 Hx Obtained From: Patient Hx Last Menstrual Period: March 15 Onset/Duration: Gradual Onset, Lasting Hours - Today, Still Present Timing: Constant Character: Depressed Aggravating Factor(s): Other - New medication for schizoaffective disorder Alleviating Factor(s): Nothing Associated Signs And Symptoms: Positive: Hallucinating - Auditory Has Suicidal: Denies: Thoughts Has Homicidal: Denies: Thoughts - Allergies/Home Medications Allergies/Adverse Reactions: Allergies Allergy/AdvReac Type Severity Reaction Status Date / Time No Known Allergies Allergy Verified 03/18/18 16:47 Home Medications: Home Medications Paliperidone [Invega] 6 mg PO DAILY 05/23/18 [History Confirmed 05/23/18] PMH/Surg Hx/FS Hx/Imm Hx Cardiovascular History: Denies: Hx Congestive Heart Failure Respiratory History: Reports: Hx Asthma Sensory History: Denies: Hx Contacts or Glasses, Hx Deafness, Hx Hearing Aid Opthamlomology History: Denies: Hx Contacts or Glasses Psychiatric History: Reports: Hx Inpatient Treatment, Hx Community Mental Health Tx, Other Psychiatric Issues/Disorders - schizoaffective disorder Denies: Hx Eating Disorder, Hx of Violent Episodes Against Others - Surgical History Surgery Procedure, Year, and Place: HERNIA REPAIR - Immunization History Date of Tetanus Vaccine: Unk Date of Influenza Vaccine: None Infectious Disease History: No Infectious Disease History: Denies: Traveled Outside the [place] in Last 30 Days - Family History Known Family History: Negative: Cardiac Disease - Social History Alcohol Use: Occasionally Hx Substance Use: No Substance Use Type: Reports: None Substance Use Comment - Amount & Last Used: Patient states that she does not use now, but admits to using in past Hx Tobacco Use: Yes Smoking Status (MU): Light Every Day Tobacco Smoker Type: Cigarettes Amount Used/How Often: 3-4 cigarettes per day Have You Smoked in the Last Year: Yes Review of Systems Positive: Blurred Vision, Other - Eye pain Positive: Depressed, Other - auditory hallucinations, NEGATIVE: SI, HI All Other Systems Reviewed And Are Negative: Yes Physical Exam - Summary Physical Exam Summary: Appearance: Well appearing, no pain distress Skin: warm, dry, reflects adequate perfusion Head/face: normal Eyes: EOMI, RONNELL, globes soft, pupils mid-range ENT: normal Neck: supple, non-tender Respiratory: CTA, breath sounds present Cardiovascular: RRR, pulses symmetrical Abdomen: non-tender, soft Bowel Sounds: present Musculoskeletal: normal, strength/ROM intact Neuro: normal, sensory motor intact, A&Ox3 Psych: flat affect, no SI or HI, positive auditory hallucinations Triage Information Reviewed: Yes Vital Signs On Initial Exam: Initial Vitals Temp Pulse Resp BP Pulse Ox 98.0 F 71 18 121/80 100 05/22/18 19:55 05/22/18 19:55 05/22/18 19:55 05/22/18 19:55 05/22/18 19:55 Vital Signs Reviewed: Yes Diagnostics - Vital Signs Vital Signs Temp Pulse Resp BP Pulse Ox 05/23/18 01:00 63 98 05/23/18 00:58 56 97 05/23/18 00:57 59 113/79 97 05/23/18 00:19 97.5 F 63 15 134/83 100 05/22/18 21:52 97.8 F 57 18 125/77 100 05/22/18 19:55 98.0 F 71 18 121/80 100 - Laboratory Result Diagrams: 05/23/18 01:46 05/23/18 01:46 Lab Statement: Any lab studies that have been ordered have been reviewed, and results considered in the medical decision making process. - EKG 3:33 Cardiac Rate: NL - 60 bpm EKG Rhythm: Sinus Rhythm ST Segment: Non-Specific EKG Interpretation: NL axis, nl interval Course/Dx - Course Course Of Treatment: Patient with chronic schizoaffective disorder and possible medication side effect. Her eye exam here is normal. Extraocular movements are intact. She has been experiencing increasing hallucinations. She does have act team. She is medically cleared for psychiatric evaluation and following crisis evaluation she was cleared for discharge home. She will follow -up with ACT team. - Differential Dx/Clinical Impression Provider Diagnosis: Schizoaffective disorder, Medication side effect Discharge - Sign-Out/Discharge Documenting (check all that apply): Patient Departure - Discharge - Discharge Plan Condition: Stable Disposition: HOME Patient Education Materials: Schizoaffective Disorder (ED) Referrals: [facility] [Outside] Additional Instructions: Per completion of a mental health evaluation, you are cleared for release and do not require inpatient psychiatric hospitalization at this time. Please go to nearest emergency room or call 911 if safety concerns arise or condition worsens. [facility]........[phone] Suicide Prevention and Crisis Services........................[phone] National Suicide Prevention Lifeline............................690-168-JPDZ ( 6157) [facility].......................[phone] Alcoholics Anonymous...............................................[phone] [facility]..............[phone] [facility]..............................................[phone] Follow Up with ACT Team Psychiatrist for problems with eyes. - Billing Disposition and Condition Condition: STABLE Disposition: Home - Attestation Statements Document Initiated by Scribe: Yes Documenting Scribe: Kavya Welsh Provider For Whom Scribe is Documenting (Include Credential): Naman Powell MD Scribe Attestation: Kavya Wynn, scribed for Naman Powell MD on 05/23/18 at 0621. Scribe Documentation Reviewed: Yes Provider Attestation: The documentation as recorded by the scribe, Kavya Welsh accurately reflects the service I personally performed and the decisions made by me, Naman Powell MD
[2018-05-23 01:57] LABS: ABS Basophils 0 10^3/ul (0-0.2); ABS Eosinophils 0.2 10^3/ul (0-0.6); ABS Lymphocytes 2.2 10^3/ul (1.0-4.8); ABS Monocytes 0.4 10^3/ul (0-0.8); ABS Neutrophils 2.7 10^3/ul (1.5-7.7); ABS Nucleated RBC 0 10^3/ul; Eosinophil % 2.7 % (0-6); Hematocrit 40 % (35-47); Mean Corpuscular HGB Conc 33 g/dl (31-36); Mean Corpuscular Hemoglobin 30 pg (27-31); Mean Corpuscular Volume 91 fL (80-97); Mean Platelet Volume 8.5 um3 (7.4-10.4); Nucleated Red Blood Cells % 0.2; Platelet Count 224 10^3/ul (150-450); Red Blood Count 4.37 10^6/ul (4.00-5.40); Red Cell Distribution Width 14 % (10.5-15); White Blood Count 5.6 10^3/ul (3.5-10.8)
[2018-05-23 02:21] LABS: EGFR Non-African American 81.1 (>60)
[2018-05-23 03:24] LABS: Urine Appearance Cloudy; Urine Blood Negative (Negative); Urine Color Amber; Urine Ketones Trace (Negative); Urine Protein Negative (Negative); Urine Specific Gravity 1.026 (1.010-1.030); Urine Urobilinogen Negative (Negative)
[2018-05-23 06:14] VITALS: BP 98/59
== END 2018-05-23 06:13 | disposition home or self-care (01) ==
LOC: ED 19:47
DX: F25.9 Schizoaffective disorder, unspecified (principal); R44.3 Hallucinations, unspecified; T43.595A Adverse effect of other antipsychotics and neuroleptics, initial encounter; Y92.9 Unspecified place or not applicable
CPT/HCPCS: 36415; 80053; 80307; 80320; 80329; 81003; 84443; 84702; 85025; 93005; 99284; G0480

== ENCOUNTER 2018-05-23 14:34 | Inpatient (IN) | payer MEDICAID ==
--- NOTE | 2018-05-23 15:04 | ED ---
Psychiatric Complaint - HPI Summary HPI Summary: This patient is a year old F BIBA to [facility] due to an attempted OD by taking 3 of her prescribed paliperidone. Patient typically takes twice per day and today took three at once about an hour ago. Patient states she called her home nurse , who had called an ambulance. - History Of Current Complaint Time Seen by Provider: 05/23/18 14:59 Hx Obtained From: Patient Hx Last Menstrual Period: March 15 Onset/Duration: Lasting Hours Character: Depressed Related History: Positive For: Prior Psychiatric Issues Has Suicidal: Reports: Thoughts, Demonstrates Gesture - Allergies/Home Medications Allergies/Adverse Reactions: Allergies Allergy/AdvReac Type Severity Reaction Status Date / Time No Known Allergies Allergy Verified 03/18/18 16:47 PMH/Surg Hx/FS Hx/Imm Hx Cardiovascular History: Denies: Hx Congestive Heart Failure Respiratory History: Reports: Hx Asthma Sensory History: Denies: Hx Contacts or Glasses, Hx Deafness, Hx Hearing Aid Opthamlomology History: Denies: Hx Contacts or Glasses Psychiatric History: Reports: Hx Inpatient Treatment, Hx Community Mental Health Tx, Other Psychiatric Issues/Disorders - schizoaffective disorder Denies: Hx Eating Disorder, Hx of Violent Episodes Against Others - Surgical History Surgery Procedure, Year, and Place: HERNIA REPAIR - Immunization History Date of Tetanus Vaccine: Unk Date of Influenza Vaccine: None Infectious Disease History: Denies: Traveled Outside the [place] in Last 30 Days - Family History Known Family History: Negative: Cardiac Disease - Social History Alcohol Use: Occasionally Hx Substance Use: No Substance Use Type: Reports: None Substance Use Comment - Amount & Last Used: Patient states that she does not use now, but admits to using in past Hx Tobacco Use: Yes Smoking Status (MU): Light Every Day Tobacco Smoker Type: Cigarettes Amount Used/How Often: 3-4 cigarettes per day Have You Smoked in the Last Year: Yes Review of Systems Negative: Fever Positive: Depressed, Other - OD, SI All Other Systems Reviewed And Are Negative: Yes Physical Exam - Summary Physical Exam Summary: Appearance: The patient is well-nourished in no acute distress and in no acute pain. Skin: The skin is warm and dry and skin color reflects adequate perfusion. HEENT: The head is normocephalic and atraumatic. The pupils are equal and reactive. The conjunctivae are clear and without drainage. Nares are patent and without drainage. Mouth reveals moist mucous membranes and the throat is without erythema and exudate. The external ears are intact. The ear canals are patent and without drainage. The tympanic membranes are intact. Neck: The neck is supple with full range of motion and non-tender. There are no carotid bruits. There is no neck vein distension. Respiratory: Chest is non-tender. Lungs are clear to auscultation and breath sounds are symmetrical and equal. Cardiovascular: Heart is regular rate and rhythm. There is no murmur or rub auscultated. There is no peripheral edema and pulses are symmetrical and equal. Abdomen: The abdomen is soft and non-tender. There are normal bowel sounds heard in all four quadrants and there is no organomegaly palpated. Musculoskeletal: There is no back tenderness noted. Extremities are non-tender with full range of motion. There is good capillary refill. There is no peripheral edema or calf tenderness elicited. Neurological: Patient is alert and oriented to person, place and time. The patient has symmetrical motor strength in all four extremities. Cranial nerves are grossly intact. Deep tendon reflexes are symmetrical and equal in all four extremities. Psychiatric: The patient has a flat affect. Triage Information Reviewed: Yes Vital Signs Reviewed: Yes Diagnostics - Laboratory Result Diagrams: 05/23/18 15:21 05/23/18 15:21 Lab Statement: Any lab studies that have been ordered have been reviewed, and results considered in the medical decision making process. Course/Dx - Course Course Of Treatment: Ms. Jerri Leal presented with the chief complaint of having overdosed on her Invega. She states she took 3 pills when normally she takes 2. Poison control recommended a 6 hour observation for overdose and her initial EKG and labs were within normal limits. At this point her vital signs have remained stable and we're observing her until 9 PM she'll be medically cleared for mental health eval. - Differential Dx/Clinical Impression Provider Diagnosis: Overdose Discharge - Sign-Out/Discharge Documenting (check all that apply): Sign-Out Patient Signing out patient TO: Naman Powell - Discharge Plan Condition: Stable Referrals: [facility] [Outside] - Billing Disposition and Condition Condition: STABLE - Attestation Statements Document Initiated by Scribe: Yes Documenting Scribe: Dunia Masterson Provider For Whom Scribe is Documenting (Include Credential): Gaston Hernandez Scribe Attestation: I, Dunia Masterson, scribed for Gaston Hernandez on 05/23/18 at 1957. Scribe Documentation Reviewed: Yes Provider Attestation: The documentation as recorded by the edwinibac, Dunia Masterson accurately reflects the service I personally performed and the decisions made by me, Gaston Hernandez
[2018-05-23 15:32] LABS: ABS Basophils 0 10^3/ul (0-0.2); ABS Eosinophils 0.1 10^3/ul (0-0.6); ABS Lymphocytes 1.8 10^3/ul (1.0-4.8); ABS Monocytes 0.4 10^3/ul (0-0.8); ABS Neutrophils 3.4 10^3/ul (1.5-7.7); ABS Nucleated RBC 0 10^3/ul; Eosinophil % 1.3 % (0-6); Hematocrit 39 % (35-47); Hemoglobin 13.1 g/dl (12.0-16.0); Lymphocyte % 31.6 % (25-47); Mean Corpuscular HGB Conc 33 g/dl (31-36); Mean Corpuscular Hemoglobin 30 pg (27-31); Mean Corpuscular Volume 90 fL (80-97); Mean Platelet Volume 8.3 um3 (7.4-10.4); Nucleated Red Blood Cells % 0.1; Platelet Count 238 10^3/ul (150-450); Red Blood Count 4.35 10^6/ul (4.00-5.40); Red Cell Distribution Width 14 % (10.5-15); White Blood Count 5.7 10^3/ul (3.5-10.8)
[2018-05-23 15:51] LABS: EGFR Non-African American 81.1 (>60)
[2018-05-23 16:00] LABS: Urine Appearance Cloudy; Urine Blood Negative (Negative); Urine Color Yellow; Urine Ketones Negative (Negative); Urine Protein Negative (Negative); Urine Specific Gravity 1.016 (1.010-1.030); Urine Urobilinogen Negative (Negative)
--- NOTE | 2018-05-23 16:19 | ED ---
Progress - Results/Orders Results/Orders: EKG at 15:46 NSR at 72 bpm with probable early repolarization. Course/Dx - Diagnoses Provider Diagnoses: Overdose Discharge - Sign-Out/Discharge Documenting (check all that apply): Sign-Out Patient - upon provider shift change Signing out patient TO: Naman Powell Receiving patient FROM: Gaston Hernandez - Discharge Plan Condition: Stable Referrals: [facility] [Outside] - Billing Disposition and Condition Condition: STABLE - Attestation Statements Document Initiated by Scribe: Yes Documenting Scribe: Shania Lott Provider For Whom Scribe is Documenting (Include Credential): Gaston Hernandez MD Scribe Attestation: Shania Wynn, scribed for Gaston Hernandez MD on 05/23/18 at 1957. Scribe Documentation Reviewed: Yes Provider Attestation: The documentation as recorded by the scribe, Shania Lott accurately reflects the service I personally performed and the decisions made by , Gaston Hernandez MD
--- NOTE | 2018-05-24 00:55 | ED ---
Progress - Progress Note Progress Note: Receiving sign out from Dr. Hernandez. Pt will be involuntary admitted to Dr. Michael for schizoaffective disorder. - Consult/PCP Time Called: 21:35 Course/Dx - Diagnoses Provider Diagnoses: Schizoaffective disorder Discharge - Sign-Out/Discharge Documenting (check all that apply): Patient Departure - Admit, Receiving Sign- Out Receiving patient FROM: Gaston Hernandez - Discharge Plan Condition: Stable Disposition: ADMITTED TO [facility] Referrals: [facility] [Outside] - Billing Disposition and Condition Condition: STABLE Disposition: Admitted to [facility] - Attestation Statements Document Initiated by Scribe: Yes Documenting Scribe: Kavya Welsh Provider For Whom Amarilisibe is Documenting (Include Credential): Naman Powell MD Scribe Attestation: Kavya Wynn, scribed for Naman Powell MD on 05/24/18 at 0216. Scribe Documentation Reviewed: Yes Provider Attestation: The documentation as recorded by the Kavya diaz accurately reflects the service I personally performed and the decisions made by Naman ellis MD
[2018-05-24] MEDS ORDERED: Al Hydrox/Mg Hydrox/Simet LIQ* 30 ML UDC PO PRN (02:33)
[2018-05-24] MEDS: Vitamin THERAPEUTIC TAB PO SCH (08:16)
[2018-05-24] MEDS: Ibuprofen TAB* 600 MG PO PRN (14:12)
[2018-05-24] MEDS: diPHENhydraMINE PO* 50 MG PO PRN (14:12)
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
[2018-05-24] MEDS: Paliperidone ER TAB* 9 MG TAB.ER PO SCH (23:26)
[2018-05-25] MEDS: Vitamin THERAPEUTIC TAB PO SCH (09:42)
--- NOTE | 2018-05-25 16:16 | PN ---
Subjective - Subjective Date of Service: 05/25/18 Service Type: 38913 Hosp care 25 min moderate complexity Subjective: Patient is noted to dance and run about unit. She reports muscle strain in shoulders and neck, along with restlessness. She reports relief with use of benztropine. She strongly advocates for herself to attend staff pass. Staff reports concern she is cheeking medication. Objective - Appearance Appearance: Well Developed/Nourished Dysmorphic Features: No Hygiene: Normal Grooming: Well Kept - Behavior Psychomotor Activities: Abnormal-Increased - hyperkinesis, c/o akathisia Exhibits Abnormal Movement: Yes - Attitude and Relatedness Attitude and Relatedness: Superficially Cooperative Eye Contact: Good - Speech Quality: Unpressured Latencies: Short Quantity: Appropriate - Mood Patient's Decription of Mood: "Great" - Affect Observed Affect: Expansive Affect Consistent with: Euphoria - Thought Process Patient's Thought Process: Filght of Ideas, Circumstantial Thought Content: Yes Paranoid Ideation, No Passive Wish, No Suicidal Planning, No Homicidal Ideation - Sensorium Experiencing Hallucinations: Yes Type of Hallucinations: Visual: No, Auditory: Yes, Command: No - Level of Consciousness Level of Consciousness: Alert Orientation: No Intact, No Orientated to Time, No Orientated to Place, No Orientated to Person - Impulse Control Impulse Control: Tenuous - Insight and Judgement Insight and Judgement: Impaired - Group Participation Particating in Group Activities: Yes - Medication Management Medication Management Adherence: Yes Assessment - Assessment Merits Inpatient Hospitalization: For Immediate Safety, For Stabilization Inpatient DSM-V Dx: F25.0 - schizoaffective d/o, bipolar type Clinical Impression: 23yo black female with schizoaffective d/o who presented to ED after intentional OD on paliperidone. She is a client of ACT and reports adherence to treatment. She endorses increased depressed mood for 2 weeks. According to ACT, she has been exhibiting break through psychosis so they increased oral paliperidone to 9mg. Urine positive for cannabinoids and cocaine. She is endorses a boyfriend inside of her, who goes away when she takes the medication. She actively responds to him during conversation. We are doing mouth checks and added benztropine due to reports of akathisia. Patient merits hospitalization for immediate safety and stabilization. Plan - Plan Treatment Plan: Name: MAYRA STILL Birthdate: 1995 [id number] continue acute intensive psychiatric treatment. May decrease to q30min observation and allow staff pass per RN discretion. add benztropine 1mg BID, perform mouth checks after med administration. discharge planning to include ACT. Continued Medication Management: Start Medication Medications: Current Medications Acetaminophen (Tylenol Tab*) 650 mg PO Q4H PRN PRN Reason: PAIN or TEMP > 101 F Al Hydrox/Mg Hydrox/Simethicone (Maalox Plus*) 30 ml PO Q4H PRN PRN Reason: INDIGESTION Diphenhydramine HCl (Benadryl Po*) 50 mg PO BEDTIME PRN PRN Reason: INSOMNIA Last Admin: 05/24/18 14:12 Dose: 50 mg Ibuprofen (Motrin Tab*) 600 mg PO Q6H PRN PRN Reason: PAIN Last Admin: 05/24/18 14:12 Dose: 600 mg Multivitamins (Theragran Tab*) 1 tab PO DAILY [facility] Last Admin: 05/25/18 09:42 Dose: 1 tab Paliperidone (Invega Er Tab*) 9 mg PO BEDTIME [facility] Last Admin: 05/24/18 23:26 Dose: Not Given - Discharge Plan Discharge Plan: Outpatient Follow Up Outpatient Program: [facility]
[2018-05-25] MEDS: diPHENhydraMINE PO* 50 MG PO PRN (20:03)
[2018-05-25] MEDS: Paliperidone ER TAB* 9 MG TAB.ER PO SCH (20:03)
[2018-05-26] MEDS: Vitamin THERAPEUTIC TAB PO SCH (09:39)
[2018-05-26] MEDS: Benztropine TAB* 1 MG PO SCH ×2 (12:54→20:35)
--- NOTE | 2018-05-26 16:13 | PN ---
Subjective - Subjective Date of Service: 05/26/18 Service Type: 73560 Hosp care 15 min low complexity Subjective: Patient reports desire for discharge and that she wrote a complaint about this. She states she only has one delusional boyfriend, "Sumi" who is an actual physiotherapy assistant. She gives conflicting information about medication adherence and appears to attend to internal stimuli in between answers. Patient endorses that Sumi leaves when she takes medication consistently. She acknowledges that her current actual sex partner is someone she "needs to let go from my life." She denies abuse or violence; states that he is not a healthy influence. Objective - Appearance Appearance: Well Developed/Nourished Dysmorphic Features: No Hygiene: Normal Grooming: Well Kept - Behavior Psychomotor Activities: Abnormal-Increased - hyperkinesis; akathisia - Attitude and Relatedness Attitude and Relatedness: Superficially Cooperative Eye Contact: Good - Speech Quality: Pressured Latencies: Short Quantity: Appropriate - Mood Patient's Decription of Mood: "Okay" - Affect Observed Affect: Expansive Affect Consistent with: Euphoria - Thought Process Patient's Thought Process: Disorganized, Tangential Thought Content: Yes Paranoid Ideation, No Passive Wish, No Suicidal Planning, No Homicidal Ideation - Sensorium Experiencing Hallucinations: Yes Type of Hallucinations: Visual: No, Auditory: Yes, Command: No - Level of Consciousness Level of Consciousness: Alert Orientation: Yes Intact, Yes Orientated to Time, Yes Orientated to Place, Yes Orientated to Person - Impulse Control Impulse Control: Tenuous - Insight and Judgement Insight and Judgement: Poor - Group Participation Particating in Group Activities: Yes - Medication Management Medication Management Adherence: Yes Assessment - Assessment Merits Inpatient Hospitalization: For Immediate Safety, For Stabilization Inpatient DSM-V Dx: F25.0 - schizoaffective d/o, bipolar type Clinical Impression: 23yo black female with schizoaffective d/o who presented to ED after intentional OD on paliperidone. She is a client of ACT and reports adherence to treatment. She endorses increased depressed mood for 2 weeks. According to ACT, she has been exhibiting break through psychosis so they increased oral paliperidone to 9mg. Urine positive for cannabinoids and cocaine. She is endorses a boyfriend inside of her, who goes away when she takes the medication. She actively responds to him during conversation. We are doing mouth checks and added benztropine due to reports of akathisia. Patient merits hospitalization for immediate safety and stabilization. Plan - Plan Treatment Plan: Name: MAYRA STILL Birthdate: 1995 [id number] continue acute intensive psychiatric treatment. May decrease to q30min observation and allow staff pass per RN discretion. add benztropine 1mg BID, perform mouth checks after med administration. discharge planning to include ACT. Continued Medication Management: Start Medication Medications: Current Medications Acetaminophen (Tylenol Tab*) 650 mg PO Q4H PRN PRN Reason: PAIN or TEMP > 101 F Al Hydrox/Mg Hydrox/Simethicone (Maalox Plus*) 30 ml PO Q4H PRN PRN Reason: INDIGESTION Benztropine Mesylate (Cogentin Tab*) 1 mg PO BID [facility] Last Admin: 05/26/18 12:54 Dose: 1 mg Diphenhydramine HCl (Benadryl Po*) 50 mg PO BEDTIME PRN PRN Reason: INSOMNIA Last Admin: 05/25/18 20:03 Dose: 50 mg Ibuprofen (Motrin Tab*) 600 mg PO Q6H PRN PRN Reason: PAIN Last Admin: 05/24/18 14:12 Dose: 600 mg Multivitamins (Theragran Tab*) 1 tab PO DAILY [facility] Last Admin: 05/26/18 09:39 Dose: 1 tab Paliperidone (Invega Er Tab*) 9 mg PO BEDTIME [facility] Last Admin: 05/25/18 20:03 Dose: 9 mg - Discharge Plan Discharge Plan: Outpatient Follow Up Outpatient Program: [facility]
[2018-05-26] MEDS: diPHENhydraMINE PO* 50 MG PO PRN (20:37)
[2018-05-26] MEDS: Paliperidone ER TAB* 9 MG TAB.ER PO SCH (20:39)
[2018-05-27] MEDS: Vitamin THERAPEUTIC TAB PO SCH (08:39)
[2018-05-27] MEDS: Benztropine TAB* 1 MG PO SCH ×2 (08:39→20:28)
[2018-05-27] MEDS: Paliperidone ER TAB* 9 MG TAB.ER PO SCH (20:28)
[2018-05-27] MEDS: diPHENhydraMINE PO* 50 MG PO PRN (20:28)
[2018-05-28] MEDS: Vitamin THERAPEUTIC TAB PO SCH (09:02)
[2018-05-28] MEDS: Benztropine TAB* 1 MG PO SCH ×2 (09:02→20:09)
[2018-05-28] MEDS: Ibuprofen TAB* 600 MG PO PRN (09:30)
--- NOTE | 2018-05-28 18:19 | PN ---
Subjective - Subjective Date of Service: 05/28/18 Service Type: [id number] Hosp care 15 min low complexity Subjective: Leilani reports that her inner boyfriend has been gone since she started taking her meds. Now she wants to be discharged. Denies that she has any drug addiction and she never attempted suicide. Very restless, climbing on the chair and possibly responding to internal stimuli. Objective - Appearance Appearance: Healthy Appearing Dysmorphic Features: No Hygiene: Normal Grooming: Disheveled - Behavior Psychomotor Activities: Abnormal-Increased Exhibits Abnormal Movement: No - Attitude and Relatedness Attitude and Relatedness: Guarded Eye Contact: Fair - Speech Quality: Unpressured Latencies: Normal Quantity: Appropriate - Mood Patient's Decription of Mood: "Fine" - Affect Observed Affect: Euphoric Affect Consistent with: Dysphoria - Thought Process Patient's Thought Process: Coherent, Circumstantial Thought Content: No Passive Wish, No Suicidal Planning, No Homicidal Ideation, No Paranoid Ideation - Sensorium Experiencing Hallucinations: Yes Type of Hallucinations: Visual: No, Auditory: Yes, Command: No - Level of Consciousness Level of Consciousness: Alert Orientation: Yes Intact, Yes Orientated to Time, Yes Orientated to Place, Yes Orientated to Person - Impulse Control Impulse Control: Tenuous - Insight and Judgement Insight and Judgement: Impaired - Group Participation Particating in Group Activities: No - Medication Management Medication Management Adherence: Yes Assessment - Assessment Merits Inpatient Hospitalization: For Immediate Safety, For Stabilization, For Ongoing Evaluation, For Discharge Planning Inpatient DSM-V Dx: F25.0 - schizoaffective d/o, bipolar type Clinical Impression: 23yo black female with schizoaffective d/o who presented to ED after intentional OD on paliperidone. She is a client of ACT and reports adherence to treatment. She endorses increased depressed mood for 2 weeks. According to ACT, she has been exhibiting break through psychosis so they increased oral paliperidone to 9mg. Urine positive for cannabinoids and cocaine. She is endorses a boyfriend inside of her, who goes away when she takes the medication. She actively responds to him during conversation. We are doing mouth checks and added benztropine due to reports of akathisia. Patient merits hospitalization for immediate safety and stabilization. Plan - Plan Treatment Plan: Name: MAYRA STILL Birthdate: 1995 [id number] Continued Medication Management: Continue Outpt Medication Medications: Current Medications Acetaminophen (Tylenol Tab*) 650 mg PO Q4H PRN PRN Reason: PAIN or TEMP > 101 F Al Hydrox/Mg Hydrox/Simethicone (Maalox Plus*) 30 ml PO Q4H PRN PRN Reason: INDIGESTION Benztropine Mesylate (Cogentin Tab*) 1 mg PO BID [facility] Last Admin: 05/28/18 09:02 Dose: 1 mg Diphenhydramine HCl (Benadryl Po*) 50 mg PO BEDTIME PRN PRN Reason: INSOMNIA Last Admin: 05/27/18 20:28 Dose: 50 mg Ibuprofen (Motrin Tab*) 600 mg PO Q6H PRN PRN Reason: PAIN Last Admin: 05/28/18 09:30 Dose: 600 mg Multivitamins (Theragran Tab*) 1 tab PO DAILY [facility] Last Admin: 05/28/18 09:02 Dose: 1 tab Paliperidone (Invega Er Tab*) 9 mg PO BEDTIME [facility] Last Admin: 05/27/18 20:28 Dose: 9 mg - Discharge Plan Discharge Plan: Outpatient Follow Up Outpatient Program: [facility]
[2018-05-28] MEDS: diPHENhydraMINE PO* 50 MG PO PRN (20:08)
[2018-05-28] MEDS: Paliperidone ER TAB* 9 MG TAB.ER PO SCH (20:09)
[2018-05-29] MEDS: Benztropine TAB* 1 MG PO SCH ×2 (09:28→20:08)
[2018-05-29] MEDS: Vitamin THERAPEUTIC TAB PO SCH (09:28)
[2018-05-29] MEDS: Ibuprofen TAB* 600 MG PO PRN (11:02)
[2018-05-29] MEDS: hydrOXYzine HCL TAB* 50 MG PO PRN ×2 (14:23→20:08)
--- NOTE | 2018-05-29 16:48 | PN ---
Subjective - Subjective Date of Service: 05/29/18 Service Type: 22339 Hosp care 15 min low complexity Subjective: Patient is giddy and hyperactive. She submitted a court request on tuesday evening. Patient reports "anxiety" and asks for a medication. She agrees to hydroxyzine. She states she is feeling "great" because of consistently taking medication while hospitalized and intends to continue doing so. We discuss NOWAK for invega and patient declines, citing that previous injection "didn't work." Objective - Appearance Appearance: Well Developed/Nourished Dysmorphic Features: No Hygiene: Normal Grooming: Well Kept - Behavior Psychomotor Activities: Normal Exhibits Abnormal Movement: No - Attitude and Relatedness Attitude and Relatedness: Cooperative Eye Contact: Good - Speech Quality: Unpressured Latencies: Normal Quantity: Appropriate - Mood Patient's Decription of Mood: "Anxious" - Affect Observed Affect: Expansive Affect Consistent with: Euphoria - Thought Process Patient's Thought Process: Circumstantial Thought Content: No Passive Wish, No Suicidal Planning, No Homicidal Ideation, No Paranoid Ideation - Sensorium Experiencing Hallucinations: No, Sensorium is Clear - denies Type of Hallucinations: Visual: No, Auditory: No, Command: No - Level of Consciousness Level of Consciousness: Alert Orientation: Yes Intact, Yes Orientated to Time, Yes Orientated to Place, Yes Orientated to Person - Impulse Control Impulse Control: Tenuous - Insight and Judgement Insight and Judgement: Poor - Group Participation Particating in Group Activities: Yes - Medication Management Medication Management Adherence: Yes Assessment - Assessment Merits Inpatient Hospitalization: For Immediate Safety, Pending Safe DC Plan Inpatient DSM-V Dx: F25.0 - schizoaffective d/o, bipolar type Clinical Impression: 23yo black female with schizoaffective d/o who presented to ED after intentional OD on paliperidone. She is a client of ACT and reports adherence to treatment. She endorses increased depressed mood for 2 weeks. According to ACT, she has been exhibiting break through psychosis so they increased oral paliperidone to 9mg. Urine positive for cannabinoids and cocaine. She is endorses a boyfriend inside of her, who goes away when she takes the medication. She actively responds to him during conversation. We are doing mouth checks and added benztropine due to reports of akathisia. Patient merits hospitalization for immediate safety and stabilization. Plan - Plan Treatment Plan: Name: MAYRA STILL Birthdate: 1995 [id number] continue acute intensive psychiatric treatment. May decrease to q30min observation. staff pass on hold due to court request. add hydroxyzine prn anxiety, perform mouth checks after med administration. discharge planning to include ACT. Continued Medication Management: Start Medication Medications: Current Medications Acetaminophen (Tylenol Tab*) 650 mg PO Q4H PRN PRN Reason: PAIN or TEMP > 101 F Al Hydrox/Mg Hydrox/Simethicone (Maalox Plus*) 30 ml PO Q4H PRN PRN Reason: INDIGESTION Benztropine Mesylate (Cogentin Tab*) 1 mg PO BID [facility] Last Admin: 05/29/18 09:28 Dose: 1 mg Diphenhydramine HCl (Benadryl Po*) 50 mg PO BEDTIME PRN PRN Reason: INSOMNIA Last Admin: 05/28/18 20:08 Dose: 50 mg Hydroxyzine HCl (Atarax Tab*) 50 mg PO Q4H PRN PRN Reason: ANXIETY Last Admin: 05/29/18 14:23 Dose: 50 mg Ibuprofen (Motrin Tab*) 600 mg PO Q6H PRN PRN Reason: PAIN Last Admin: 05/29/18 11:02 Dose: 600 mg Multivitamins (Theragran Tab*) 1 tab PO DAILY [facility] Last Admin: 05/29/18 09:28 Dose: 1 tab Paliperidone (Invega Er Tab*) 9 mg PO BEDTIME [facility] Last Admin: 05/28/18 20:09 Dose: 9 mg - Discharge Plan Discharge Plan: Outpatient Follow Up Outpatient Program: [facility]
[2018-05-29] MEDS ORDERED: Mouth Piece, Nicotine* 1 EACH CARTRIDGE INH SCH (16:49)
[2018-05-29] MEDS: Paliperidone ER TAB* 9 MG TAB.ER PO SCH (20:08)
[2018-05-29] MEDS: diPHENhydraMINE PO* 50 MG PO PRN (20:08)
[2018-05-30] MEDS: Benztropine TAB* 1 MG PO SCH ×2 (08:27→21:32)
[2018-05-30] MEDS: Vitamin THERAPEUTIC TAB PO SCH (08:27)
[2018-05-30] MEDS: Ibuprofen TAB* 600 MG PO PRN (12:47)
[2018-05-30] MEDS: Nicotine GUM* 2 MG PO PRN ×2 (13:04→18:02)
[2018-05-30] MEDS: Nicotine Inhaler* 10 MG AMP INH PRN (17:58)
[2018-05-30] MEDS: hydrOXYzine HCL TAB* 50 MG PO PRN (21:32)
[2018-05-30] MEDS: Paliperidone ER TAB* 9 MG TAB.ER PO SCH (21:34)
[2018-05-31] MEDS: Benztropine TAB* 1 MG PO SCH ×2 (08:54→20:17)
[2018-05-31] MEDS: Vitamin THERAPEUTIC TAB PO SCH (08:54)
[2018-05-31] MEDS: Nicotine GUM* 2 MG PO PRN (08:55)
[2018-05-31] MEDS: hydrOXYzine HCL TAB* 50 MG PO PRN ×2 (16:03→23:00)
--- NOTE | 2018-05-31 16:43 | PN ---
[facility]: Group Therapy Note - Service Type Service Type: [id number] Group Psychotherapy - Medication Education Group: Patient was attentive and participatory in group, and remained in good behavioral control. Patient expressed positive insights regarding relevant treatment interventions. Patient stated understanding of material discussed and had appropriate questions.
[2018-05-31] MEDS: diPHENhydraMINE PO* 50 MG PO PRN (20:19)
[2018-05-31] MEDS: Paliperidone ER TAB* 9 MG TAB.ER PO SCH (20:20)
[2018-06-01] MEDS: Nicotine Inhaler* 10 MG AMP INH PRN (07:31)
[2018-06-01] MEDS: hydrOXYzine HCL TAB* 50 MG PO PRN ×2 (08:44→17:17)
[2018-06-01] MEDS: Vitamin THERAPEUTIC TAB PO SCH (08:44)
[2018-06-01] MEDS: Benztropine TAB* 1 MG PO SCH ×2 (08:44→21:37)
[2018-06-01] MEDS ORDERED: LORazepam TAB(*) 0.5 MG PO ONE (10:22)
--- NOTE | 2018-06-01 14:07 | PN ---
Subjective - Subjective Date of Service: 06/01/18 Service Type: 55343 Hosp care 15 min low complexity Subjective: Patient reports increase in anxiousness. She is primarily seclusive but pleasant upon approach. She attends groups intermittently. Patient states she is no longer interacting with the man who was recently her boyfriend. Patient has poor insight into lack of housing due to psychotic behaviors when not taking medications. Objective - Appearance Appearance: Well Developed/Nourished Dysmorphic Features: Yes Hygiene: Normal Grooming: Fairly Well Kept - Behavior Psychomotor Activities: Normal Exhibits Abnormal Movement: No - Attitude and Relatedness Attitude and Relatedness: Cooperative Eye Contact: Good - Speech Quality: Unpressured Latencies: Normal Quantity: Appropriate - Mood Patient's Decription of Mood: "Anxious" - Affect Observed Affect: Expansive Affect Consistent with: Euphoria - Thought Process Patient's Thought Process: Circumstantial Thought Content: Yes Paranoid Ideation, No Passive Wish, No Suicidal Planning, No Homicidal Ideation - Sensorium Experiencing Hallucinations: Yes Type of Hallucinations: Visual: No, Auditory: Yes, Command: No - Level of Consciousness Level of Consciousness: Alert Orientation: Yes Intact, Yes Orientated to Time, Yes Orientated to Place, Yes Orientated to Person - Impulse Control Impulse Control: Tenuous - Insight and Judgement Insight and Judgement: Poor - Group Participation Particating in Group Activities: No - Medication Management Medication Management Adherence: Yes Assessment - Assessment Merits Inpatient Hospitalization: For Immediate Safety, For Stabilization, Pending Safe DC Plan Inpatient DSM-V Dx: F25.0 - schizoaffective d/o, bipolar type Clinical Impression: 23yo black female with schizoaffective d/o who presented to ED after intentional OD on paliperidone. She is a client of [facility] and reports adherence to treatment. She endorses increased depressed mood for 2 weeks. According to [facility], she has been exhibiting break through psychosis so they increased oral paliperidone to 9mg. Urine positive for cannabinoids and cocaine. She is endorses a boyfriend inside of her, who goes away when she takes the medication. She actively responds to him during conversation. We are doing mouth checks and added benztropine due to reports of akathisia. Patient merits hospitalization for immediate safety and stabilization. Plan - Plan Treatment Plan: Name: MAYRA STILL Birthdate: 1995 [id number] continue acute intensive psychiatric treatment. May decrease to q30min observation. may have staff pass due to rescinded court request. add hydroxyzine prn anxiety, may have one time dose of lorazepam. discharge planning to include [facility]. Continued Medication Management: Different Medication Medications: Current Medications Acetaminophen (Tylenol Tab*) 650 mg PO Q4H PRN PRN Reason: PAIN or TEMP > 101 F Al Hydrox/Mg Hydrox/Simethicone (Maalox Plus*) 30 ml PO Q4H PRN PRN Reason: INDIGESTION Benztropine Mesylate (Cogentin Tab*) 1 mg PO BID [facility] Last Admin: 06/01/18 08:44 Dose: 1 mg Device (Nicotine Mouth Piece*) 1 each INH .[facility] Diphenhydramine HCl (Benadryl Po*) 50 mg PO BEDTIME PRN PRN Reason: INSOMNIA Last Admin: 05/31/18 20:19 Dose: 50 mg Hydroxyzine HCl (Atarax Tab*) 50 mg PO Q4H PRN PRN Reason: ANXIETY Last Admin: 06/01/18 08:44 Dose: 50 mg Ibuprofen (Motrin Tab*) 600 mg PO Q6H PRN PRN Reason: PAIN Last Admin: 05/30/18 12:47 Dose: 600 mg Multivitamins (Theragran Tab*) 1 tab PO DAILY [facility] Last Admin: 06/01/18 08:44 Dose: 1 tab Nicotine (Nicotine Inhaler*) 10 mg INH Q2H PRN PRN Reason: CRAVING Last Admin: 06/01/18 07:31 Dose: 10 mg Nicotine Polacrilex (Nicotine Gum*) 2 mg PO Q2H PRN PRN Reason: CRAVING Last Admin: 05/31/18 08:55 Dose: 2 mg Paliperidone (Invega Er Tab*) 9 mg PO BEDTIME [facility] Last Admin: 05/31/18 20:20 Dose: 9 mg - Discharge Plan Discharge Plan: Outpatient Follow Up Outpatient Program: [facility]
[2018-06-01] MEDS: diPHENhydraMINE PO* 50 MG PO PRN (21:37)
[2018-06-01] MEDS: Paliperidone ER TAB* 9 MG TAB.ER PO SCH (21:37)
[2018-06-02] MEDS: hydrOXYzine HCL TAB* 50 MG PO PRN ×2 (03:41→21:56)
[2018-06-02] MEDS: Benztropine TAB* 1 MG PO SCH ×2 (08:31→21:56)
[2018-06-02] MEDS: Vitamin THERAPEUTIC TAB PO SCH (08:32)
[2018-06-02] MEDS: Nicotine GUM* 2 MG PO PRN (08:32)
--- NOTE | 2018-06-02 11:31 | PN ---
Subjective - Subjective Date of Service: 06/02/18 Service Type: 14569 Hosp care 15 min low complexity Subjective: Patient reports periods of anxiousness. She endorses much relief from lorazepam yesterday and requests that this is prescribed in place of hydroxyzine. She is encouraged to utilize sparingly due to risk for abuse potential. Three Dimensional Map Modeler discussed use of SSRI for depression and anxiety and patient agrees. She identifies with symptoms of depressive d/o- low energy, recently depressed mood, anhedonia and recent suicide attempt. Objective - Appearance Appearance: Well Developed/Nourished Dysmorphic Features: Yes Hygiene: Normal Grooming: Well Kept - Behavior Psychomotor Activities: Normal Exhibits Abnormal Movement: No - Attitude and Relatedness Attitude and Relatedness: Withdrawn Eye Contact: Fair - Speech Quality: Unpressured Latencies: Normal Quantity: Appropriate - Mood Patient's Decription of Mood: "Anxious" - Affect Observed Affect: Good Affect Consistent with: Euthymia - Thought Process Patient's Thought Process: Circumstantial, Impoverished Thought Content: No Passive Wish, No Suicidal Planning, No Homicidal Ideation, No Paranoid Ideation - Sensorium Experiencing Hallucinations: No, Sensorium is Clear Type of Hallucinations: Visual: No, Auditory: No, Command: No - Level of Consciousness Level of Consciousness: Alert Orientation: Yes Intact, Yes Orientated to Time, Yes Orientated to Place, Yes Orientated to Person - Impulse Control Impulse Control: Tenuous - Insight and Judgement Insight and Judgement: Poor - Group Participation Particating in Group Activities: No - Medication Management Medication Management Adherence: Yes Assessment - Assessment Merits Inpatient Hospitalization: For Immediate Safety, For Stabilization, Consolidate Improvements, Pending Safe DC Plan Inpatient DSM-V Dx: F25.0 - schizoaffective d/o, bipolar type Clinical Impression: 23yo black female with schizoaffective d/o who presented to ED after intentional OD on paliperidone. She is a client of [facility] and reports adherence to treatment. She endorses increased depressed mood for 2 weeks. According to [facility], she has been exhibiting break through psychosis so they increased oral paliperidone to 9mg. Urine positive for cannabinoids and cocaine. She is endorses a boyfriend inside of her, who goes away when she takes the medication. Patient endorses depressed mood with anxious distress and agrees to trial of SSRI. She is at high risk for rapid decompensation if discharge without comprehensive plan. Patient merits hospitalization for immediate safety and stabilization. Plan - Plan Treatment Plan: Name: MAYRA STILL Birthdate: 1995 [id number] continue acute intensive psychiatric treatment. May decrease to q30min observation. may have staff pass due to rescinded court request. DC hydroxyzine. Start sertraline and add lorazepam prn. discharge planning to include [facility]. Continued Medication Management: Start Medication Medications: Current Medications Acetaminophen (Tylenol Tab*) 650 mg PO Q4H PRN PRN Reason: PAIN or TEMP > 101 F Al Hydrox/Mg Hydrox/Simethicone (Maalox Plus*) 30 ml PO Q4H PRN PRN Reason: INDIGESTION Benztropine Mesylate (Cogentin Tab*) 1 mg PO BID [facility] Last Admin: 06/02/18 08:31 Dose: 1 mg Device (Nicotine Mouth Piece*) 1 each INH .[facility] Diphenhydramine HCl (Benadryl Po*) 50 mg PO BEDTIME PRN PRN Reason: INSOMNIA Last Admin: 06/01/18 21:37 Dose: 50 mg Hydroxyzine HCl (Atarax Tab*) 50 mg PO Q4H PRN PRN Reason: ANXIETY Last Admin: 06/02/18 03:41 Dose: 50 mg Ibuprofen (Motrin Tab*) 600 mg PO Q6H PRN PRN Reason: PAIN Last Admin: 05/30/18 12:47 Dose: 600 mg Lorazepam (Ativan Tab(*)) 0.5 mg PO BID PRN PRN Reason: ANXIETY Multivitamins (Theragran Tab*) 1 tab PO DAILY [facility] Last Admin: 06/02/18 08:32 Dose: 1 tab Nicotine (Nicotine Inhaler*) 10 mg INH Q2H PRN PRN Reason: CRAVING Last Admin: 06/01/18 07:31 Dose: 10 mg Nicotine Polacrilex (Nicotine Gum*) 2 mg PO Q2H PRN PRN Reason: CRAVING Last Admin: 06/02/18 08:32 Dose: 2 mg Paliperidone (Invega Er Tab*) 9 mg PO BEDTIME [facility] Last Admin: 06/01/18 21:37 Dose: 9 mg Sertraline HCl (Zoloft*) 50 mg PO DAILY [facility] - Discharge Plan Discharge Plan: Outpatient Follow Up Outpatient Program: [facility]
[2018-06-02] MEDS: Sertraline* 50 MG TAB PO SCH (12:17)
[2018-06-02] MEDS: LORazepam TAB(*) 0.5 MG PO PRN (12:22)
[2018-06-02] MEDS: diPHENhydraMINE PO* 50 MG PO PRN (21:55)
[2018-06-02] MEDS: Paliperidone ER TAB* 9 MG TAB.ER PO SCH (21:56)
[2018-06-03] MEDS: Sertraline* 50 MG TAB PO SCH (08:50)
[2018-06-03] MEDS: Vitamin THERAPEUTIC TAB PO SCH (08:50)
[2018-06-03] MEDS: Benztropine TAB* 1 MG PO SCH ×2 (08:50→22:33)
[2018-06-03] MEDS: Nicotine GUM* 2 MG PO PRN ×2 (10:36→16:05)
[2018-06-03] MEDS: Paliperidone ER TAB* 9 MG TAB.ER PO SCH (22:33)
[2018-06-04] MEDS: Vitamin THERAPEUTIC TAB PO SCH (09:30)
[2018-06-04] MEDS: Sertraline* 50 MG TAB PO SCH (09:30)
[2018-06-04] MEDS: Benztropine TAB* 1 MG PO SCH (09:30)
[2018-06-04] MEDS: Nicotine GUM* 2 MG PO PRN (10:10)
[2018-06-04] MEDS: LORazepam TAB(*) 0.5 MG PO PRN (10:22)
[2018-06-04] MEDS: hydrOXYzine HCL TAB* 50 MG PO PRN (14:17)
[2018-06-05] MEDS: Vitamin THERAPEUTIC TAB PO SCH (08:56)
[2018-06-05] MEDS: Sertraline* 50 MG TAB PO SCH (08:56)
[2018-06-05] MEDS: Nicotine GUM* 2 MG PO PRN ×2 (09:59→15:43)
--- NOTE | 2018-06-05 12:12 | PN ---
Subjective - Subjective Date of Service: 06/05/18 Service Type: 69308 Hosp care 35 min high complexity Subjective: Patient reports galactorrhea. Invega stopped and patient educated regarding side effect. She inquires about use of aripiprazole, as this was mentioned to her by [facility] provider. She agrees to continue hospitalization to assess effect of oral aripiprazole. Patient reports urinary frequency, denies dysuria. She agrees to obtain urinalysis and states understanding of midstream/clean catch specimen. Objective - Appearance Appearance: Well Developed/Nourished Dysmorphic Features: No Hygiene: Normal Grooming: Well Kept - Behavior Psychomotor Activities: Normal Exhibits Abnormal Movement: No - Attitude and Relatedness Attitude and Relatedness: Cooperative Eye Contact: Good - Speech Quality: Unpressured Latencies: Normal Quantity: Appropriate - Mood Patient's Decription of Mood: "Good" - Affect Observed Affect: Good Affect Consistent with: Euthymia - Thought Process Patient's Thought Process: Coherent, Goal Directed Thought Content: No Passive Wish, No Suicidal Planning, No Homicidal Ideation, No Paranoid Ideation - Sensorium Experiencing Hallucinations: No, Sensorium is Clear Type of Hallucinations: Visual: No, Auditory: No, Command: No - Level of Consciousness Level of Consciousness: Alert Orientation: Yes Intact, Yes Orientated to Time, Yes Orientated to Place, Yes Orientated to Person - Impulse Control Impulse Control: Tenuous - Insight and Judgement Insight and Judgement: Fair - Group Participation Particating in Group Activities: No - Medication Management Medication Management Adherence: Yes Assessment - Assessment Merits Inpatient Hospitalization: For Immediate Safety, For Stabilization, To Initiate Treatment, Pending Safe DC Plan Inpatient DSM-V Dx: F25.0 - schizoaffective d/o, bipolar type Clinical Impression: 23yo black female with schizoaffective d/o who presented to ED after intentional OD on paliperidone. She is a client of [facility] and reports adherence to treatment. She endorses increased depressed mood for 2 weeks. According to [facility], she has been exhibiting break through psychosis so they increased oral paliperidone to 9mg. Urine positive for cannabinoids and cocaine. She is endorses a boyfriend inside of her, who goes away when she takes the medication. Patient endorses depressed mood with anxious distress and agrees to trial of SSRI. She is at high risk for rapid decompensation if discharge without comprehensive plan. Due to side effects of paliperidone, we are switching to aripiprazole. Patient merits hospitalization for immediate safety and stabilization. Plan - Plan Treatment Plan: Name: MAYRA STILL Birthdate: 1995 [id number] continue acute intensive psychiatric treatment. May decrease to q30min observation. may have staff pass due to rescinded court request. DC paliperidone due to galactorrhea. start aripirpazole 15mg daily. continue other medications. discharge planning to include [facility]. Continued Medication Management: Different Medication Medications: Current Medications Acetaminophen (Tylenol Tab*) 650 mg PO Q4H PRN PRN Reason: PAIN or TEMP > 101 F Al Hydrox/Mg Hydrox/Simethicone (Maalox Plus*) 30 ml PO Q4H PRN PRN Reason: INDIGESTION Device (Nicotine Mouth Piece*) 1 each INH .[facility] Diphenhydramine HCl (Benadryl Po*) 50 mg PO BEDTIME PRN PRN Reason: INSOMNIA Last Admin: 06/02/18 21:55 Dose: 50 mg Hydroxyzine HCl (Atarax Tab*) 50 mg PO Q4H PRN PRN Reason: ANXIETY Last Admin: 06/04/18 14:17 Dose: 50 mg Ibuprofen (Motrin Tab*) 600 mg PO Q6H PRN PRN Reason: PAIN Last Admin: 05/30/18 12:47 Dose: 600 mg Lorazepam (Ativan Tab(*)) 0.5 mg PO BID PRN PRN Reason: ANXIETY Last Admin: 06/04/18 10:22 Dose: 0.5 mg Multivitamins (Theragran Tab*) 1 tab PO DAILY [facility] Last Admin: 06/05/18 08:56 Dose: 1 tab Nicotine (Nicotine Inhaler*) 10 mg INH Q2H PRN PRN Reason: CRAVING Last Admin: 06/01/18 07:31 Dose: 10 mg Nicotine (Nicotine Patch 7 Mg/24 Hr*) 1 patch TRANSDERM DAILY [facility] Nicotine Polacrilex (Nicotine Gum*) 2 mg PO Q2H PRN PRN Reason: CRAVING Last Admin: 06/05/18 09:59 Dose: 2 mg Pharmacy Profile Note (Nicotine Patch Removal Note*) 1 note FOLLOW UP 2100 [facility] Sertraline HCl (Zoloft*) 50 mg PO DAILY [facility] Last Admin: 06/05/18 08:56 Dose: 50 mg - Discharge Plan Discharge Plan: Outpatient Follow Up Outpatient Program: [facility]
[2018-06-05] MEDS: ARIPiprazole TAB* 15 MG PO SCH (14:19)
[2018-06-05] MEDS: Nicotine PATCH 7 MG/24 HR* PATCH TRANSDERM SCH (14:20)
[2018-06-05 14:48] LABS: Urine Appearance Cloudy; Urine Blood 3+ (Negative); Urine Color Yellow; Urine Ketones Negative (Negative); Urine Protein Negative (Negative); Urine Red Blood Cell Trace(0-2/hpf) (Absent); Urine Specific Gravity 1.011 (1.010-1.030); Urine Urobilinogen Negative (Negative); Urine White Blood Cell Trace(0-5/hpf) (Absent)
[2018-06-05] MEDS: Ibuprofen TAB* 600 MG PO PRN (15:41)
[2018-06-05] MEDS: LORazepam TAB(*) 0.5 MG PO PRN (15:46)
[2018-06-05] MEDS: Nicotine Patch Removal NOTE FOLLOW UP SCH (21:12)
[2018-06-05] MEDS: diPHENhydraMINE PO* 50 MG PO PRN (21:37)
[2018-06-06] MEDS: Nicotine GUM* 2 MG PO PRN (05:30)
[2018-06-06] MEDS: Vitamin THERAPEUTIC TAB PO SCH (08:22)
[2018-06-06] MEDS: ARIPiprazole TAB* 15 MG PO SCH (08:22)
[2018-06-06] MEDS: Nicotine PATCH 7 MG/24 HR* PATCH TRANSDERM SCH (08:22)
[2018-06-06] MEDS: Sertraline* 50 MG TAB PO SCH (08:22)
[2018-06-06] MEDS ORDERED: Nicotine PATCH 7 MG/24 HR* PATCH ONE (08:50)
[2018-06-06 11:10] LABS: ABS Basophils 0 10^3/ul (0-0.2); ABS Eosinophils 0.1 10^3/ul (0-0.6); ABS Lymphocytes 1.6 10^3/ul (1.0-4.8); ABS Monocytes 0.5 10^3/ul (0-0.8); ABS Neutrophils 2.6 10^3/ul (1.5-7.7); ABS Nucleated RBC 0 10^3/ul; Eosinophil % 1.6 % (0-6); Hematocrit 41 % (35-47); Hemoglobin 13.4 g/dl (12.0-16.0); Lymphocyte % 33.9 % (25-47); Mean Corpuscular HGB Conc 33 g/dl (31-36); Mean Corpuscular Hemoglobin 30 pg (27-31); Mean Corpuscular Volume 91 fL (80-97); Mean Platelet Volume 8.7 um3 (7.4-10.4); Nucleated Red Blood Cells % 0.1; Platelet Count 246 10^3/ul (150-450); Red Blood Count 4.48 10^6/ul (4.00-5.40); Red Cell Distribution Width 14 % (10.5-15); White Blood Count 4.7 10^3/ul (3.5-10.8)
[2018-06-06 11:27] LABS: EGFR Non-African American 99.1 (>60)
[2018-06-06] MEDS ORDERED: Sulfamethox/Trimethoprim DS 800/160* TAB PO SCH (13:00)
[2018-06-06] MEDS ORDERED: Phenazopyridine TAB* 100 MG PO ONE (15:10)
--- NOTE | 2018-06-06 15:17 | PN ---
Subjective - Subjective Date of Service: 06/06/18 Service Type: 10841 Hosp care 25 min moderate complexity Subjective: pt c/o urinary urgency. bladder scan done, normal residual. pt denies vulvovaginal pain or odor. will trial pyridium. she denies side effects from aripiprazole. Objective - Appearance Appearance: Well Developed/Nourished Dysmorphic Features: No Hygiene: Normal Grooming: Well Kept - Behavior Psychomotor Activities: Normal Exhibits Abnormal Movement: No - Attitude and Relatedness Attitude and Relatedness: Cooperative Eye Contact: Good - Speech Quality: Unpressured Latencies: Normal Quantity: Appropriate Assessment - Assessment Merits Inpatient Hospitalization: For Immediate Safety, For Stabilization, Pending Safe DC Plan Inpatient DSM-V Dx: F25.0 - schizoaffective d/o, bipolar type Clinical Impression: 23yo black female with schizoaffective d/o who presented to ED after intentional OD on paliperidone. She is a client of [facility] and reports adherence to treatment. She endorses increased depressed mood for 2 weeks. According to [facility], she has been exhibiting break through psychosis so they increased oral paliperidone to 9mg. Urine positive for cannabinoids and cocaine. She is endorses a boyfriend inside of her, who goes away when she takes the medication. Patient endorses depressed mood with anxious distress and agrees to trial of SSRI. She is at high risk for rapid decompensation if discharge without comprehensive plan. Due to side effects of paliperidone, we are switching to aripiprazole. Patient merits hospitalization for immediate safety and stabilization. Plan - Plan Treatment Plan: Name: MAYRA STILL Birthdate: 1995 [id number] continue acute intensive psychiatric treatment. May decrease to q30min observation. may have staff pass due to rescinded court request. DC paliperidone due to galactorrhea. start aripirpazole 15mg daily. continue other medications. discharge planning to include [facility]. Continued Medication Management: Different Medication Medications: Current Medications Acetaminophen (Tylenol Tab*) 650 mg PO Q4H PRN PRN Reason: PAIN or TEMP > 101 F Al Hydrox/Mg Hydrox/Simethicone (Maalox Plus*) 30 ml PO Q4H PRN PRN Reason: INDIGESTION Aripiprazole (Abilify Tab*) 15 mg PO DAILY [facility] Last Admin: 06/06/18 08:22 Dose: 15 mg Device (Nicotine Mouth Piece*) 1 each INH .[facility] Diphenhydramine HCl (Benadryl Po*) 50 mg PO BEDTIME PRN PRN Reason: INSOMNIA Last Admin: 06/05/18 21:37 Dose: 50 mg Hydroxyzine HCl (Atarax Tab*) 50 mg PO Q4H PRN PRN Reason: ANXIETY Last Admin: 06/04/18 14:17 Dose: 50 mg Ibuprofen (Motrin Tab*) 600 mg PO Q6H PRN PRN Reason: PAIN Last Admin: 06/05/18 15:41 Dose: 600 mg Lorazepam (Ativan Tab(*)) 0.5 mg PO BID PRN PRN Reason: ANXIETY Last Admin: 06/05/18 15:46 Dose: 0.5 mg Multivitamins (Theragran Tab*) 1 tab PO DAILY [facility] Last Admin: 06/06/18 08:22 Dose: 1 tab Nicotine (Nicotine Inhaler*) 10 mg INH Q2H PRN PRN Reason: CRAVING Last Admin: 06/01/18 07:31 Dose: 10 mg Nicotine (Nicotine Patch 7 Mg/24 Hr*) 1 patch TRANSDERM DAILY [facility] Last Admin: 06/06/18 08:22 Dose: 1 patch Nicotine Polacrilex (Nicotine Gum*) 2 mg PO Q2H PRN PRN Reason: CRAVING Last Admin: 06/06/18 05:30 Dose: 2 mg Pharmacy Profile Note (Nicotine Patch Removal Note*) 1 note FOLLOW UP 2100 [facility] Last Admin: 06/05/18 21:12 Dose: Not Given Phenazopyridine HCl (Pyridium Tab*) 200 mg PO ONCE ONE Stop: 06/06/18 15:11 Sertraline HCl (Zoloft*) 50 mg PO DAILY [facility] Last Admin: 06/06/18 08:22 Dose: 50 mg - Discharge Plan Discharge Plan: Outpatient Follow Up Outpatient Program: [facility]
[2018-06-06] MEDS: LORazepam TAB(*) 0.5 MG PO PRN (16:40)
[2018-06-06] MEDS: Nicotine Patch Removal NOTE FOLLOW UP SCH (21:21)
[2018-06-06] MEDS: Acetaminophen TAB* 325 MG PO PRN (21:50)
[2018-06-07] MEDS: Acetaminophen TAB* 325 MG PO PRN (06:35)
[2018-06-07] MEDS: LORazepam TAB(*) 0.5 MG PO PRN (06:36)
[2018-06-07 08:01] VITALS: BP 103/53
[2018-06-07] MEDS: Nicotine PATCH 7 MG/24 HR* PATCH TRANSDERM SCH (08:22)
[2018-06-07] MEDS: ARIPiprazole TAB* 15 MG PO SCH (08:24)
[2018-06-07] MEDS: Sertraline* 50 MG TAB PO SCH (08:26)
[2018-06-07] MEDS: Vitamin THERAPEUTIC TAB PO SCH (09:14)
--- NOTE | 2018-06-08 05:13 | DS ---
CC: [facility] Team * DISCHARGE SUMMARY: DATE OF ADMISSION: 05/24/18 DATE OF DISCHARGE: 06/07/18. SUPERVISING PSYCHIATRIST: Richie Amaya MD * (DICTATED BY NICK HERCULES NP) DISCHARGE DIAGNOSIS: Schizoaffective disorder, bipolar type. CONDITION AT THE TIME OF DISCHARGE: Improved. The patient is euthymic with full range of affect. She is no longer attending to internal stimulation. She denies auditory or visual hallucinations. She reports improvement in mood and anxiety. She denies suicidal ideation, passive wish or urges to self harm. The patient is goal and future oriented. She has tolerated continued hospitalization and changes in discharge plan, as well. She has been pleasant and cooperative, calm and in behavioral control. She participated in meals and staff pass and psychoeducational groups. She has been medication compliant. MENTAL STATUS EXAM: The patient is a 23-year-old black female, who appears stated age. She is pleasant and cooperative and answers questions fully. She is dressed in her own clothing and well groomed. She is alert and oriented x3. Speech is soft and articulate. Eye contact is good. Memory is 3/3. Her mood is "good". Affect is congruent. Thought process is logical, goal directed , coherent. Thought content is negative for delusions and hallucinations. Insight and judgment are good. Fund of knowledge is excellent. DISCHARGE INSTRUCTIONS GIVEN TO THE PATIENT: A. Medications: 1. Aripiprazole 15 mg p.o. daily. 2. Diphenhydramine 50 mg p.o. q.h.s. p.r.n. insomnia. 3. Lorazepam 0.5 mg p.o. b.i.d. p.r.n. anxiety. 4. Nicotine gums 2 mg p.o. q.2 hours p.r.n. craving. 5. Nicotine patch 7 mg daily. 6. Pyridium 100 mg p.o. daily x1 week. 7. Sertraline 50 mg p.o. daily. B. Diet is regular. C. Activity: Ambulation as tolerated. Tobacco cessation was provided to patient. There are no pending labs or diagnostic studies. D. Followup Care: The patient will follow up with [facility] team as they picked her up for discharge. She was referred to [facility] for temporary housing. She was given information about the advocacy center and [facility] for primary care referral. E. Substance use followup: The patient refused offers for substance use treatment or medications for substance use treatment. HOSPITAL COURSE: Part A: Reason for admission: The patient presented to the emergency department with reports of depressed mood and overdose attempt on medications. She had been admitted to this unit in March of this year and during that admission accepted the referral to [facility] team. According to collateral from the [facility] team, the patient has had breakthrough psychotic symptoms. They increased paliperidone to 9 mg. The patient reported feeling "down and depressed." She reported onset of suicidal ideation the day she presented to the emergency department. She endorse lethargy, anhedonia, and depressed mood. She responded to internal stimuli. She identified hearing 2 separate male voices, who she referred to as her boyfriends. She had been asked to leave apartments in [place] more than once due to bizarre behaviors and behaviors associated with her current male friend. She denied sexual assault. She denied multiple partners and denied need for STI testing. She has fixed delusions that she might be . The patient presented with both cocaine and cannabinoids in her urine. Laboratory data from the emergency department: CBC was grossly unremarkable. Sickle cell was done in March of this year and negative. Chemistry within normal limits. In April hemoglobin A1c was 5.4. Lipid panel within normal limits. On 05/26/18, hemoglobin A1c is 5.1. Lipid panel within normal limits. TSH normal at 0.84. Urinalysis within normal limits. Toxicology positive for cocaine and cannabinoids. Part B: Psychiatric Treatment Rendered: The patient was admitted to the Adult Behavioral Services Unit on voluntary status. Code status is full. She was placed on 15-minute checks for her safety. This is eventually decreased to 30- minute observation and she was allowed to go on staff pass. We resumed paliperidone. Patient refused injection. She disclosed that the voice she heard in her is a rapper, named Sumi. She indirectly admitted to not taking medication as Sumi goes away when she does take medication. She was medication compliant and increasing organized. She reported concern about side effect of galactorrhea before planned discharge. We stopped paliperidone. The patient education was done regarding the side effect. She agreed to change to aripiprazole, tolerated 15 mg daily with no reports of side effects. The patient denied long-acting injection of Abilify. She had multiple somatic complaints while here including urinary frequency and urgency. UA and micro were done and UTI was ruled out. The patient was given a dose of Pyridium which was helpful for urinary urgency. Lab work was repeated, which denoted normal kidney function and normal electrolytes. CBC was also within normal limits when repeated. Today, on the day of discharge, the patient continues to be euthymic and in behavioral control. She reports readiness for discharge. She has tolerated changes in discharge plan very well. She was given information about resources in the community to increase socialization. NICK HERCULES, ADVERTISING EXECUTIVE [id number]/CPS #: [id number] ANSHUL
== END 2018-06-07 10:30 | disposition home or self-care (01) | DRG 750 ==
LOC: ED 14:34 → BSU 05-24 00:30 → ED 05-24 02:08
PROVIDERS: ADMIT Psychiatry & Neurology Psychiatry; ATTEND Psychiatry & Neurology Psychiatry
PROC: GZHZZZZ Group Psychotherapy (ICD-10-PCS; principal; 2018-05-31)
DX: F25.0 Schizoaffective disorder, bipolar type (principal); R39.15 Urgency of urination; R35.0 Frequency of micturition; Z62.810 Personal history of physical and sexual abuse in childhood; J45.909 Unspecified asthma, uncomplicated; N92.6 Irregular menstruation, unspecified; F12.90 Cannabis use, unspecified, uncomplicated; F14.90 Cocaine use, unspecified, uncomplicated; T43.592A Poisoning by other antipsychotics and neuroleptics, intentional self-harm, initial encounter; F17.210 Nicotine dependence, cigarettes, uncomplicated; N64.3 Galactorrhea not associated with childbirth; T43.595A Adverse effect of other antipsychotics and neuroleptics, initial encounter; F41.9 Anxiety disorder, unspecified; G25.71 Drug induced akathisia; Z23 Encounter for immunization; Z72.89 Other problems related to lifestyle; Y92.009 Unspecified place in unspecified non-institutional (private) residence as the place of occurrence of the external cause
CPT/HCPCS: 36415; 80048; 80053; 80061; 80307; 80320; 80329; 81003; 81015; 83036; 83605; 84146; 84443; 84702; 85025; 87086; 90686; 90853; 93005; 99222; 99231; 99232; 99233; 99284; A9270-GY; G0480